=== PATIENT | male | born 1960 | race Caucasian/White ===

== ENCOUNTER 2016-07-22 09:21 | Outpatient (CLI) | payer MEDICAID | END 2016-07-22 09:22 | disposition home or self-care (01) | DX: M25.561 Pain in right knee (principal); G89.29 Other chronic pain; M17.11 Unilateral primary osteoarthritis, right knee; F17.201 Nicotine dependence, unspecified, in remission ==

== ENCOUNTER 2016-08-08 10:23 | Outpatient (CLI) | payer MEDICAID | END 2016-08-08 10:24 | disposition home or self-care (01) | DX: G47.33 Obstructive sleep apnea (adult) (pediatric) (principal) ==

== ENCOUNTER 2016-10-13 19:01 | Emergency (ER) | payer MEDICAID ==
[2016-10-13] MEDS ORDERED: HYDROmorphone 1 MG/ML SYRINGE IM STA (20:33)
[2016-10-13] MEDS ORDERED: HYDROmorphone 1 MG/ML SYRINGE ONE (20:38)
[2016-10-13] MEDS ORDERED: POTASSIUM CHLORIDE 20 MEQ TABLET PO STA (21:21)
[2016-10-13] MEDS ORDERED: POTASSIUM CHLORIDE 20 MEQ TABLET PO ONE (21:25)
== END 2016-10-13 22:24 | disposition home or self-care (01) ==
DX: M25.561 Pain in right knee (principal); M79.604 Pain in right leg; Z96.651 Presence of right artificial knee joint; I11.0 Hypertensive heart disease with heart failure; I50.9 Heart failure, unspecified; I25.10 Atherosclerotic heart disease of native coronary artery without angina pectoris; E11.42 Type 2 diabetes mellitus with diabetic polyneuropathy; Z79.4 Long term (current) use of insulin; K21.9 Gastro-esophageal reflux disease without esophagitis; E78.00 Pure hypercholesterolemia, unspecified; J44.9 Chronic obstructive pulmonary disease, unspecified; G47.30 Sleep apnea, unspecified; Z86.010 Personal history of colon polyps; Z87.11 Personal history of peptic ulcer disease; M19.90 Unspecified osteoarthritis, unspecified site; Z79.82 Long term (current) use of aspirin; Z87.891 Personal history of nicotine dependence
CPT/HCPCS: 36415; 80048; 85025; 85651; 86140; 93971; 96372; 99283; 99285; A9270; J1170

== ENCOUNTER 2017-01-20 07:37 | Outpatient (CLI) | payer MEDICAID ==
[2017-01-20 11:39] LABS: ALBUMIN/GLOBULIN RATIO 1.2 (1.0-2.2); BILIRUBIN,TOTAL 0.3 mg/dL (0.2-1.0); BUN - BLOOD UREA NITROGEN 14 mg/dL (6-20); CALCIUM 8.5 mg/dL (8.5-10.3); CARBON DIOXIDE - CO2 29 mmol/L (21-32); CHLORIDE 101 mmol/L (101-111); CHOL/HDL RATIO 4.4 (<5.0); CHOLESTEROL 124 mg/dL; CREATININE 0.9 mg/dL (0.6-1.2); GFR - MDRD 88 (>89); GLUCOSE 153 mg/dL (70-100); HDL CHOLESTEROL 28 mg/dL; LDL/HDL RATIO 2.4 (<3.6); POTASSIUM 3.9 mmol/L (3.5-5.0); SODIUM 138 mmol/L (135-145); TOTAL PROTEIN 6.5 g/dL (6.7-8.2); TRIGLYCERIDES 142 mg/dL; VLDL CHOLESTEROL 28 mg/dL
[2017-01-20 11:48] LABS: HEMOGLOBIN A1C 0.85 g/dL
== END 2017-01-20 07:38 | disposition home or self-care (01) ==
LOC: LAB.F 07:37
PROVIDERS: ATTEND Nurse Practitioner Family
DX: E11.9 Type 2 diabetes mellitus without complications (principal)
CPT/HCPCS: 36415; 80053; 80061; 82043; 83036

== ENCOUNTER 2017-08-18 08:54 | Outpatient (CLI) | payer MEDICAID ==
[2017-08-18 18:40] LABS: ALBUMIN 3.8 g/dL (3.2-5.5); CALCIUM 8.9 mg/dL (8.5-10.3); CREATININE 0.7 mg/dL (0.6-1.2); PHOSPHORUS 4.2 mg/dL (2.5-4.6)
[2017-08-18 20:05] LABS: HB2 TOTAL 15.6 g/dL; HEMOGLOBIN A1C 1.12 g/dL; HEMOGLOBIN A1C % 8.7 % (4.6-6.2)
== END 2017-08-18 08:55 | disposition home or self-care (01) ==
LOC: LAB.F 08:54
PROVIDERS: ATTEND Internal Medicine Cardiovascular Disease
DX: I25.119 Atherosclerotic heart disease of native coronary artery with unspecified angina pectoris (principal); E11.9 Type 2 diabetes mellitus without complications
CPT/HCPCS: 36415; 80069; 83036

== ENCOUNTER 2017-08-22 14:31 | Outpatient (CLI) | payer MEDICAID | END 2017-08-22 14:32 | disposition home or self-care (01) | LOC: SC 14:31 | PROVIDERS: ATTEND Nurse Practitioner Family | DX: G47.33 Obstructive sleep apnea (adult) (pediatric) (principal) | CPT/HCPCS: 99212; 99213 ==

== ENCOUNTER 2017-12-04 11:18 | Outpatient (CLI) | payer MEDICAID ==
[2017-12-04 19:49] LABS: HB2 TOTAL 15.2 g/dL; HEMOGLOBIN A1C 0.87 g/dL; HEMOGLOBIN A1C % 7.4 % (4.6-6.2)
== END 2017-12-04 11:19 | disposition home or self-care (01) ==
LOC: LAB.S 11:18
PROVIDERS: ATTEND Nurse Practitioner Family
DX: E11.9 Type 2 diabetes mellitus without complications (principal)
CPT/HCPCS: 36415; 83036

== ENCOUNTER 2018-01-19 16:06 | Emergency (ER) | payer MEDICAID ==
--- NOTE | 2018-01-19 16:30 | ED Physician Documentation ---
PD HPI LOWER EXT INJURY - Stated complaint Stated Complaint: L LEG PX - Chief complaint Chief Complaint: Ext Problem - History obtained from History obtained from: Patient - History of Present Illness PD HPI LOW EXT INJURY LOCATION: Left, Knee Type of injury: Other (overuse) Where injury occurred: Home Timing - onset: How many weeks ago (2) Timing - duration: Weeks (2) Timing - details: Gradual onset, Still present, Waxing and waning Improved by: Rest, Immobilization Worsened by: Moving, Palpating Associated symptoms: Swelling. No: Weakness, Numbness, Tingling Contributing factors: No: Anticoagulated Similar symptoms before: Diagnosis (right knee was replaced) Recently seen: Clinic - Additional information Additional information: 57 year old male diabetic with a prior right knee total replacement has developed pain in his left knee after excessive use with moving. He now has pain in the back of the knee radiating to the buttocks and pain from the calf to the popletial fossa. He has pain with weight bearing and with bending. He denies fever. He has been in to see his PMD and physical therapy has been prescribed and will not start until January. He is in too much pain to wait. Review of Systems Constitutional: denies: Fever Eyes: denies: Decreased vision Ears: denies: Ear pain Nose: denies: Congestion Throat: denies: Sore throat Respiratory: denies: Cough GI: denies: Vomiting : denies: Dysuria Skin: denies: Rash Musculoskeletal: reports: Extremity pain, Joint pain, Joint swelling, Pain with weight bearing. denies: Neck pain, Extremity swelling Neurologic: denies: Generalized weakness, Focal weakness, Numbness PD PAST MEDICAL HISTORY - Past Medical History Cardiovascular: Congestive heart failure, High cholesterol, Coronary artery disease, Angina, Murmur, Other Respiratory: COPD, Shortness of breath, Sleep apnea, CPAP use Endocrine/Autoimmune: Type 2 diabetes GI: GERD, GI bleed, Ulcers, Colon polyps, Chronic diarrhea, Other : None HEENT: None Psych: None Musculoskeletal: Osteoarthritis, Chronic back pain Derm: None - Past Surgical History Past Surgical History: Yes General: Bowel surgery, Colonoscopy Ortho: Spine surgery Cardiovascular: Coronary stent, Valve replacement, Other - Present Medications Home Medications: Ambulatory Orders Medication Instructions Recorded Confirmed Albuterol [Ventolin Hfa] 2 puffs INH DAILY 06/29/13 10/13/16 Beclomethasone 80 Mcg [Qvar 80] 1 puffs INH DAILY 06/29/13 10/13/16 Fluticasone [Flonase] 2 sprays ANUP BID 06/29/13 10/13/16 Gabapentin [Neurontin] 600 mg PO HS 06/29/13 10/13/16 Lisinopril [Zestril] 5 mg PO DAILY 06/29/13 10/13/16 Metformin HCl [Fortamet] 1,000 mg PO BID 06/29/13 10/13/16 Omeprazole [PriLOSEC] 20 mg PO DAILY 06/29/13 10/13/16 glipiZIDE [Glucotrol] 10 - 15 mg PO BID 06/29/13 10/13/16 Cholecalciferol (Vitamin D3) 10,000 unit PO DAILY 09/02/13 10/13/16 [Vitamin D-3] traMADol [Ultram] 50 mg PO DAILY 12/19/13 10/13/16 Albuterol 2.5 mg INH Q4H PRN #30 neb 11/25/14 10/13/16 Furosemide [Lasix] 40 mg PO DAILY #20 tablet 11/25/14 10/13/16 hydrOXYzine pamoate [Hydroxyzine 100 mg PO QPM 11/25/14 10/13/16 Pamoate] Atorvastatin [Lipitor] 80 mg ORAL DAILY 02/05/16 10/13/16 Metoprolol Succinate 25 mg PO BID 02/05/16 10/13/16 Nitroglycerin 0.4 mg SL PRN PRN 02/05/16 10/13/16 Clopidogrel Bisulfate [Clopidogrel] 75 mg PO DAILY 06/29/16 10/13/16 Cyclobenzaprine HCl 10 mg PO DAILY 06/29/16 10/13/16 Dicyclomine [Bentyl] 20 mg PO QID 06/29/16 10/13/16 Insulin Glargine,Hum.rec.anlog 82 unit SQ DAILY 06/29/16 10/13/16 [Lantus] Insulin Lispro [Humalog] 4 - 8 unit SQ TIDWM 08/24/16 10/13/16 Isosorbide Dinitrate 5 mg PO TID 08/24/16 10/13/16 Acetaminophen 500 mg PO Q6H 10/13/16 10/13/16 Aspirin 81 mg PO DAILY 10/13/16 10/13/16 Clopidogrel [Plavix] 25 mg PO ONCE 10/13/16 10/13/16 oxyCODONE/ACET 5/325 [Percocet 5 1 - 2 each PO Q4-6H PRN #20 tablet 01/19/18 mg/325 mg] - Allergies Allergies/Adverse Reactions: Allergies Allergy/AdvReac Type Severity Reaction Status Date / Time No Known Drug Allergies Allergy Verified 01/19/18 16:13 - Social History Does the pt smoke?: No Smoking Status: Former smoker Does the pt drink ETOH?: No Does the pt have substance abuse?: No - Immunizations Immunizations are current?: Yes - POLST Patient has POLST: No PD ED PE NORMAL - Vitals Vital signs reviewed: Yes (hypertensive) - General General: Alert and oriented X 3, No acute distress, Well developed/nourished - HEENT HEENT: Atraumatic, PERRL - Respiratory Respiratory: No respiratory distress - Derm Derm: Normal color, Warm and dry, No rash - Extremities Extremities: No deformity, No edema, Other (There is a palpable cord over the posterior calf and this extends into the popliteal fossa and up into the posterior thigh. The area is tender. It does appear there is a bakers cyst and a joint effusion consistent with over use. Distal n/v is intact. ) - Neuro Neuro: No motor deficit, No sensory deficit Eye Opening: Spontaneous Motor: Obeys Commands Verbal: Oriented GCS Score: 15 - Psych Psych: Normal mood, Normal affect Results - Vitals Vitals: Oxygen O2 Source Room air - Rads (name of study) L knee Radiology: Prelim report reviewed (Impression: 1. No acute bony abnormality. 2. Mild degenerative changes, grade 2 by Kellgran Bogdan classification. 3. Small effusion.), EMP read indepedently, See rad report duplex viens left Radiology: Prelim report reviewed (Impression: No evidence for deep venous thrombosis.), EMP read indepedently, See rad report PD MEDICAL DECISION MAKING - ED course Complexity details: reviewed old records, reviewed results, re-evaluated patient , considered differential, d/w patient ED course: 57 y/o diabetic male with history of arthritis and prior knee replacement has developed acute reactive arthritis in the left knee after excessive use moving. He is administered PO decadron and x-ray and duplex exam are performed. He does have symptoms up the back of his calf that are significant enough to trigger duplex exam. I suspect his symptoms are all related to overuse and not DVT. - Sepsis Event Vital Signs: Oxygen O2 Source Room air Departure - Departure Disposition: 01 Home, Self Care Clinical Impression: Reactive arthritis of knee Condition: Stable Instructions: ED Effusion Knee Follow-Up: Tennille Barahona ARNP [Primary Care Provider] - [facility] [Provider Group] Prescriptions: oxyCODONE/ACET 5/325 [Percocet 5 mg/325 mg] 1 - 2 each PO Q4-6H PRN #20 tablet PRN Reason: knee pain Discharge Date/Time: 01/19/18 19:10
[2018-01-19] MEDS: DEXAMETHASONE 10 MG/ML VIAL PO STA (16:47)
[2018-01-19] MEDS ORDERED: CHERRY SYRUP 10 ML UDC PO ONE (16:58)
--- NOTE | 2018-01-19 17:34 | XRAY Report ---
Procedure Date: 01/19/2018 Accession Number: [id number] / [id number] Procedure: XR - Knee 4 View LT CPT Code: FULL RESULT: EXAM: LEFT KNEE RADIOGRAPHY EXAM DATE: 01/19/2018 05:11 PM. CLINICAL HISTORY: Pain, predominantly posterior, after overuse. COMPARISON: None. TECHNIQUE: 4 views. FINDINGS: Bones: Normal. No fractures or bone lesions. Joints: Mild narrowing and moderate osteophytes all 3 joint compartments. Small effusion. Moderate osteophytes off the tibial spines. Soft Tissues: Normal. No soft tissue swelling. IMPRESSION: 1. No acute bony abnormality. 2. Mild degenerative changes, grade 2 by Kellgren Bogdan classification. 3. Small effusion. RADIA
[2018-01-19 19:11] VITALS: BP 123/75
--- NOTE | 2018-01-19 19:19 | Ultrasound Report ---
Procedure Date: 01/19/2018 Accession Number: [id number] / [id number] Procedure: US - Duplex Ext Veins Left CPT Code: FULL RESULT: EXAM: LEFT LOWER EXTREMITY VENOUS ULTRASOUND EXAM DATE: 01/19/2018 06:31 PM. CLINICAL HISTORY: Posterior swelling pain cord palpable. COMPARISON: None. TECHNIQUE: Real-time sonographic vascular imaging was performed by the inspector structural bonding through the lower extremity utilizing both color-flow and Doppler spectral analysis. Multiple merchandiser retail representative static images were saved for review. FINDINGS: Common Femoral Vein (CFV): Normal. CFV-GSV Junction: Normal. Profunda Femoral Vein (PFV): Normal. Femoral Vein (FV) Prox: Normal. Femoral Vein (FV) Mid: Normal. Femoral Vein (FV) Dist: Normal. Popliteal Vein: Normal. Posterior Tibial Veins: Normal. Peroneal Veins: Normal. Other: None. IMPRESSION: No evidence for deep venous thrombosis. RADIA
== END 2018-01-19 19:10 | disposition home or self-care (01) ==
LOC: ED 16:06
DX: M17.12 Unilateral primary osteoarthritis, left knee (principal); E11.9 Type 2 diabetes mellitus without complications; E78.00 Pure hypercholesterolemia, unspecified; I25.10 Atherosclerotic heart disease of native coronary artery without angina pectoris; Z95.5 Presence of coronary angioplasty implant and graft; Z79.4 Long term (current) use of insulin; Z96.651 Presence of right artificial knee joint; Z79.82 Long term (current) use of aspirin
CPT/HCPCS: 73564; 93971; 99283; A9270

== ENCOUNTER 2018-03-08 07:11 | Outpatient (CLI) | payer MEDICAID ==
[2018-03-08 11:17] LABS: BASOPHILS % (AUTO) 0.6 %; EOSINOPHILS # (AUTO) 0.2 10^3/uL (0.0-0.7); EOSINOPHILS % (AUTO) 2.8 %; HGB - HEMOGLOBIN 14.4 g/dL (14.0-18.0); LYMPHOCYTES # (AUTO) 1.8 10^3/uL (1.5-3.5); LYMPHOCYTES % (AUTO) 22.5 %; MEAN CORPUSCULAR HEMOGLOBIN 29.4 pg (27.0-31.0); MEAN CORPUSCULAR HGB CONC 33.7 g/dL (32.0-36.0); MEAN CORPUSCULAR VOLUME 87.3 fL (80.0-94.0); MEAN PLATELET VOLUME 8.8 fL (7.4-11.4); MONOCYTES # (AUTO) 0.7 10^3/uL (0.0-1.0); MONOCYTES % (AUTO) 9.2 %; NEUTROPHILS # (AUTO) 5.1 10^3/uL (1.5-6.6); NEUTROPHILS % (AUTO) 64.9 %; PLT - PLATELET COUNT 183 10^3/uL (130-450); RED BLOOD COUNT 4.89 10^6/uL (4.70-6.10); RED CELL DISTRIBUTION WIDTH 16.6 % (12.0-15.0); WHITE BLOOD COUNT 7.9 x10^3/uL (4.8-10.8)
[2018-03-08 11:22] LABS: ALBUMIN/GLOBULIN RATIO 1.4 (1.0-2.2); ALKALINE PHOSPHATASE 61 IU/L (42-121); ALT ALANINE AMINOTRANSFERASE 25 IU/L (10-60); AST ASPARTATE AMINOTRANSFERASE 20 IU/L (10-42); BILIRUBIN,TOTAL 0.5 mg/dL (0.2-1.0); BUN - BLOOD UREA NITROGEN 12 mg/dL (6-20); CALCIUM 9.1 mg/dL (8.5-10.3); CARBON DIOXIDE - CO2 31 mmol/L (21-32); CHLORIDE 100 mmol/L (101-111); CHOL/HDL RATIO 3.1 (<5.0); CHOLESTEROL 100 mg/dL; CREATININE 0.8 mg/dL (0.6-1.2); GFR - MDRD 100 (>89); GLUCOSE 127 mg/dL (70-100); HDL CHOLESTEROL 32 mg/dL; LDL CHOLESTEROL,CALCULATED 56 mg/dL; LDL/HDL RATIO 1.8 (<3.6); SODIUM 140 mmol/L (135-145); TOTAL PROTEIN 6.8 g/dL (6.7-8.2); VLDL CHOLESTEROL 12 mg/dL
[2018-03-08 11:44] LABS: HB2 TOTAL 15.6 g/dL; HEMOGLOBIN A1C 0.66 g/dL
== END 2018-03-08 07:12 | disposition home or self-care (01) ==
LOC: LAB.F 07:11
PROVIDERS: ATTEND Nurse Practitioner Family
DX: E11.9 Type 2 diabetes mellitus without complications (principal); E78.5 Hyperlipidemia, unspecified; I50.9 Heart failure, unspecified; J44.9 Chronic obstructive pulmonary disease, unspecified
CPT/HCPCS: 36415; 80053; 80061; 82043; 83036; 83721; 84443; 85025

== ENCOUNTER 2018-06-05 09:19 | Outpatient (CLI) | payer MEDICAID ==
[2018-06-05 18:21] LABS: HB2 TOTAL 15.3 g/dL; HEMOGLOBIN A1C 0.68 g/dL; HEMOGLOBIN A1C % 6.2 % (4.6-6.2)
== END 2018-06-05 09:20 | disposition home or self-care (01) ==
LOC: LAB.F 09:19
PROVIDERS: ATTEND Nurse Practitioner Family
DX: E11.9 Type 2 diabetes mellitus without complications (principal)
CPT/HCPCS: 36415; 83036

== ENCOUNTER 2018-08-16 12:02 | Outpatient (CLI) | payer MEDICAID ==
--- NOTE | 2018-08-16 17:19 | MRI Report ---
Reason: CHRONIC BILATERAL LOW BACK PAIN WITH BILATERAL SCI Procedure Date: 08/16/2018 Accession Number: [id number] / [id number] Procedure: MRI - Lumbar Spine W/O CPT Code: FULL RESULT: MRI LUMBAR SPINE WITHOUT CONTRAST INDICATION: 58-year-old male. Chronic bilateral low back pain with bilateral leg pain. Please assess. TECHNIQUE: 1. Sagittal STIR, T1 and T2. 2. Axial T1 and T2. COMPARISON: None. FINDINGS: Bone window images from a previous abdomen/pelvis CT (04/30/2016) have been reviewed, confirming the presence of 5 non-rib bearing lumbar type vertebrae. Vertebral alignment is essentially normal. There is absence of normal T2 signal from the disks at all levels from T12-L1 to L5-S1, confirming disk degeneration. There is mild disk space narrowing at L2-L3 with moderate narrowing at L4-L5 and mild to moderate narrowing at L5-S1. The disk space heights are otherwise preserved. The marrow signal intensity is unremarkable. The conus terminates in appropriate fashion above the L1-L2 disk level. There is no abnormal thickening or lipomatous change of the filum. Axial Images: T12-L1: No disk herniation. No spinal canal or foraminal stenosis. L1-L2: Small intraforaminal/extraforaminal protrusions bilaterally. No spinal canal or foraminal stenosis. L2-L3: Circumferential disk bulge. Broad-based intraforaminal/extraforaminal extrusions bilaterally. Mild to moderate redundancy of the ligamenta flava. Mild prominence of the intralaminar fat pad. Circumferential thecal sac compression with mild to moderate spinal stenosis. Mild right foraminal stenosis. L3-L4: Broad-based, intraforaminal/extraforaminal extrusions, larger on the right than the left. Degenerative facet arthrosis without significant bony hypertrophy. Mild to moderate redundancy of the ligamenta flava. Mild prominence of intralaminar fat pad. Moderate generalized (central and subarticular zone). Spinal stenosis. Mild foraminal stenoses. L4-L5: There is deformity of the right lamina suggesting probable previous hemilaminotomy. There is a circumferential disk bulge with associated, minor posterior osteophyte. A small extrusion with minor, caudal migration is identified, paracentrally on the right. There is associated, right subarticular zone stenosis. Traversing right L5 nerve root is contacted by disk anteriorly and facet/ligamentum flavum posteriorly in the subarticular zone. There could be impingement of the right L5 nerve root. No central zone spinal stenosis or significant left subarticular zone narrowing. Small intraforaminal/extraforaminal protrusion bilaterally. Degenerative facet arthrosis with at least mild bony hypertrophy. Mild foraminal narrowing. L5-S1: There is a moderate-sized, broad-based, posterior extrusion that is largest, paracentrally to the left where it projects posteriorly into the spinal canal for about 9.8 mm. The extrusion contacts the dural sleeve for traversing right S1 nerve root in the right subarticular zone. No mass effect on the S1 nerve root is demonstrated. The extrusion contacts the traversing left S1 nerve root in the left subarticular zone and causes minimal if any mass effect on the nerve root. The extrusion is not causing apparent mass effect on the dural sac; however, noted is abundant epidural fat in the spinal canal, surrounding and compressing the dural sac, consistent with epidural lipomatosis. There is little if any CSF in the dural sac at the disk level. Broad-based intraforaminal/extraforaminal extrusions are demonstrated bilaterally without significant associated foraminal stenosis. There is a moderate degree of fatty atrophy in the posterior paraspinal musculature of lower lumbar/upper sacral region. IMPRESSION: 1. Disk and facet changes are seen throughout the lumbar spine as documented in detail above. 2. There are associated, central, subarticular and foraminal zone stenoses. The most significant stenoses are as follows: A. At L4-L5 there is significant appearing right subarticular zone stenosis. There could be compromise of traversing right L5 nerve root. Recommend clinical correlation for possible right L5 radiculopathy. B. A moderate-sized, posterior extrusion at L5-S1 contacts the traversing left S1 nerve root in the left subarticular zone. There appears to be very minimal mass effect on the left S1 nerve area. Recommend clinical correlation for possible left S1 radiculitis/radiculopathy. No other significant stenosis is identified and no other potential neural irritation or impingement is demonstrated.
== END 2018-08-16 12:03 | disposition home or self-care (01) ==
LOC: DI 12:02
PROVIDERS: ATTEND Physical Medicine & Rehabilitation
DX: M51.26 Other intervertebral disc displacement, lumbar region (principal); M51.27 Other intervertebral disc displacement, lumbosacral region; M47.9 Spondylosis, unspecified; M51.36 Other intervertebral disc degeneration, lumbar region; M48.061 Spinal stenosis, lumbar region without neurogenic claudication; M51.37 Other intervertebral disc degeneration, lumbosacral region
CPT/HCPCS: 72148

== ENCOUNTER 2018-08-28 14:43 | Outpatient (CLI) | payer MEDICAID | END 2018-08-28 14:44 | disposition home or self-care (01) | LOC: SC 14:43 | PROVIDERS: ATTEND Nurse Practitioner Family | DX: G47.33 Obstructive sleep apnea (adult) (pediatric) (principal) | CPT/HCPCS: 99212; 99214 ==

== ENCOUNTER 2018-09-13 07:13 | Outpatient (CLI) | payer MEDICAID ==
[2018-09-13 12:59] LABS: BASOPHILS # (AUTO) 0.1 10^3/uL (0.0-0.1); BASOPHILS % (AUTO) 0.8 %; EOSINOPHILS # (AUTO) 0.4 10^3/uL (0.0-0.7); EOSINOPHILS % (AUTO) 4.3 %; HGB - HEMOGLOBIN 14.1 g/dL (14.0-18.0); LYMPHOCYTES # (AUTO) 1.9 10^3/uL (1.5-3.5); LYMPHOCYTES % (AUTO) 20.1 %; MEAN CORPUSCULAR HEMOGLOBIN 30.6 pg (27.0-31.0); MEAN CORPUSCULAR HGB CONC 34.1 g/dL (32.0-36.0); MEAN CORPUSCULAR VOLUME 89.9 fL (80.0-94.0); MEAN PLATELET VOLUME 8.7 fL (7.4-11.4); MONOCYTES # (AUTO) 0.8 10^3/uL (0.0-1.0); MONOCYTES % (AUTO) 8.2 %; NEUTROPHILS # (AUTO) 6.4 10^3/uL (1.5-6.6); NEUTROPHILS % (AUTO) 66.6 %; PLT - PLATELET COUNT 163 10^3/uL (130-450); RED BLOOD COUNT 4.62 10^6/uL (4.70-6.10); RED CELL DISTRIBUTION WIDTH 15.4 % (12.0-15.0); WHITE BLOOD COUNT 9.6 x10^3/uL (4.8-10.8)
[2018-09-13 13:12] LABS: ALBUMIN 3.9 g/dL (3.2-5.5); ALBUMIN/GLOBULIN RATIO 1.4 (1.0-2.2); ALKALINE PHOSPHATASE 64 IU/L (42-121); ALT ALANINE AMINOTRANSFERASE 26 IU/L (10-60); AST ASPARTATE AMINOTRANSFERASE 18 IU/L (10-42); BILIRUBIN,TOTAL 0.6 mg/dL (0.2-1.0); BUN - BLOOD UREA NITROGEN 14 mg/dL (6-20); CALCIUM 8.3 mg/dL (8.5-10.3); CARBON DIOXIDE - CO2 30 mmol/L (21-32); CHLORIDE 96 mmol/L (101-111); CHOLESTEROL 127 mg/dL; CREATININE 0.6 mg/dL (0.6-1.2); GFR - MDRD 139 (>89); GLUCOSE 116 mg/dL (70-100); HDL CHOLESTEROL 43 mg/dL; LDL CHOLESTEROL,CALCULATED 69 mg/dL; LDL/HDL RATIO 1.6 (<3.6); SODIUM 136 mmol/L (135-145); TOTAL PROTEIN 6.6 g/dL (6.7-8.2); VLDL CHOLESTEROL 15 mg/dL
[2018-09-13 14:14] LABS: HB2 TOTAL 15.3 g/dL; HEMOGLOBIN A1C 0.73 g/dL; HEMOGLOBIN A1C % 6.5 % (4.6-6.2)
== END 2018-09-13 07:14 | disposition home or self-care (01) ==
LOC: LAB.F 07:13
PROVIDERS: ATTEND Nurse Practitioner
DX: E78.5 Hyperlipidemia, unspecified (principal); E11.9 Type 2 diabetes mellitus without complications
CPT/HCPCS: 36415; 80053; 80061; 82043; 83036; 83721; 85025

== ENCOUNTER 2018-12-18 07:21 | Outpatient (CLI) | payer MEDICAID ==
[2018-12-18 10:46] LABS: BASOPHILS # (AUTO) 0.1 10^3/uL (0.0-0.1); EOSINOPHILS # (AUTO) 0.3 10^3/uL (0.0-0.7); HGB - HEMOGLOBIN 14.1 g/dL (14.0-18.0); LYMPHOCYTES # (AUTO) 2.3 10^3/uL (1.5-3.5); LYMPHOCYTES % (AUTO) 25.9 %; MEAN CORPUSCULAR HEMOGLOBIN 29.3 pg (27.0-31.0); MEAN CORPUSCULAR HGB CONC 31.5 g/dL (32.0-36.0); MEAN CORPUSCULAR VOLUME 93.1 fL (80.0-94.0); MEAN PLATELET VOLUME 10.5 fL (7.4-11.4); MONOCYTES # (AUTO) 0.8 10^3/uL (0.0-1.0); MONOCYTES % (AUTO) 9.3 %; NEUTROPHILS # (AUTO) 5.3 10^3/uL (1.5-6.6); NEUTROPHILS % (AUTO) 60.3 %; PLT - PLATELET COUNT 166 10^3/uL (130-450); RED BLOOD COUNT 4.81 10^6/uL (4.70-6.10); RED CELL DISTRIBUTION WIDTH 14.6 % (12.0-15.0); WHITE BLOOD COUNT 8.7 x10^3/uL (4.8-10.8)
[2018-12-18 11:04] LABS: ALBUMIN 3.7 g/dL (3.2-5.5); ALBUMIN/GLOBULIN RATIO 1.2 (1.0-2.2); ALKALINE PHOSPHATASE 60 IU/L (42-121); ALT ALANINE AMINOTRANSFERASE 31 IU/L (10-60); AST ASPARTATE AMINOTRANSFERASE 20 IU/L (10-42); BILIRUBIN,TOTAL 0.6 mg/dL (0.2-1.0); BUN - BLOOD UREA NITROGEN 14 mg/dL (6-20); CALCIUM 8.8 mg/dL (8.5-10.3); CARBON DIOXIDE - CO2 26 mmol/L (21-32); CHLORIDE 104 mmol/L (101-111); CHOL/HDL RATIO 3.9 (<5.0); CHOLESTEROL 125 mg/dL; CREATININE 0.6 mg/dL (0.6-1.2); GFR - MDRD 139 (>89); GLUCOSE 136 mg/dL (70-100); HDL CHOLESTEROL 32 mg/dL; LDL CHOLESTEROL,CALCULATED 64 mg/dL; SODIUM 140 mmol/L (135-145); TOTAL PROTEIN 6.7 g/dL (6.7-8.2); VLDL CHOLESTEROL 29 mg/dL
[2018-12-18 11:16] LABS: HB2 TOTAL 14.5 g/dL; HEMOGLOBIN A1C 0.79 g/dL; HEMOGLOBIN A1C % 7.1 % (4.6-6.2)
== END 2018-12-18 07:22 | disposition home or self-care (01) ==
LOC: LAB.F 07:21
PROVIDERS: ATTEND Registered Nurse
DX: E11.9 Type 2 diabetes mellitus without complications (principal); E66.9 Obesity, unspecified; E78.5 Hyperlipidemia, unspecified; I25.10 Atherosclerotic heart disease of native coronary artery without angina pectoris
CPT/HCPCS: 36415; 80053; 80061; 83036; 83721; 84443; 85025

== ENCOUNTER 2018-12-31 08:47 | Outpatient (CLI) | payer MEDICAID ==
[2018-12-31 09:41] LABS: ALBUMIN 3.8 g/dL (3.2-5.5); BILIRUBIN,DIRECT 0.1 mg/dL (0.1-0.5); BILIRUBIN,TOTAL 0.5 mg/dL (0.2-1.0); CREATININE 0.7 mg/dL (0.6-1.2); TOTAL PROTEIN 6.8 g/dL (6.7-8.2)
== END 2018-12-31 08:48 | disposition home or self-care (01) ==
LOC: LAB 08:47
PROVIDERS: ATTEND Physician Assistant Medical
DX: B35.1 Tinea unguium (principal); Z79.899 Other long term (current) drug therapy
CPT/HCPCS: 36415; 80076; 82565; 84520

== ENCOUNTER 2019-02-05 17:47 | Emergency (ER) | payer MEDICAID ==
[2019-02-05] MEDS ORDERED: BACITRACIN OINT TOP STA (19:00)
--- NOTE | 2019-02-05 19:01 | ED Physician Documentation ---
History of Present Illness - Stated complaint Stated Complaint: L HAND BURN - Chief complaint Chief Complaint: Burn - History obtained from History obtained from: Patient - History of Present Illness Timing: Today, How many hours ago (1) Pain level max: 5 Pain level now: 4 PD PAST MEDICAL HISTORY - Past Medical History Cardiovascular: Congestive heart failure, High cholesterol, Coronary artery disease, Angina, Murmur, Other Respiratory: COPD, Shortness of breath, Sleep apnea, CPAP use Endocrine/Autoimmune: Type 2 diabetes GI: GERD, GI bleed, Ulcers, Colon polyps, Chronic diarrhea, Other : None HEENT: None Psych: None Musculoskeletal: Osteoarthritis, Chronic back pain Derm: None - Past Surgical History Past Surgical History: Yes General: Bowel surgery, Colonoscopy Ortho: Spine surgery Cardiovascular: Coronary stent, Valve replacement, Other - Present Medications Home Medications: Ambulatory Orders Medication Instructions Recorded Confirmed Albuterol [Ventolin Hfa] 2 puffs INH DAILY 06/29/13 10/13/16 Beclomethasone 80 Mcg [Qvar 80] 1 puffs INH DAILY 06/29/13 10/13/16 Fluticasone [Flonase] 2 sprays ANUP BID 06/29/13 10/13/16 Gabapentin [Neurontin] 600 mg PO HS 06/29/13 10/13/16 Lisinopril [Zestril] 5 mg PO DAILY 06/29/13 10/13/16 Metformin HCl [Fortamet] 1,000 mg PO BID 06/29/13 10/13/16 Omeprazole [PriLOSEC] 20 mg PO DAILY 06/29/13 10/13/16 glipiZIDE [Glucotrol] 10 - 15 mg PO BID 06/29/13 10/13/16 Cholecalciferol (Vitamin D3) 10,000 unit PO DAILY 09/02/13 10/13/16 [Vitamin D-3] traMADol [Ultram] 50 mg PO DAILY 12/19/13 10/13/16 Albuterol 2.5 mg INH Q4H PRN #30 neb 11/25/14 10/13/16 Furosemide [Lasix] 40 mg PO DAILY #20 tablet 11/25/14 10/13/16 hydrOXYzine pamoate [Hydroxyzine 100 mg PO QPM 11/25/14 10/13/16 Pamoate] Atorvastatin [Lipitor] 80 mg ORAL DAILY 02/05/16 10/13/16 Metoprolol Succinate 25 mg PO BID 02/05/16 10/13/16 Nitroglycerin 0.4 mg SL PRN PRN 02/05/16 10/13/16 Clopidogrel Bisulfate [Clopidogrel] 75 mg PO DAILY 06/29/16 10/13/16 Cyclobenzaprine HCl 10 mg PO DAILY 06/29/16 10/13/16 Dicyclomine [Bentyl] 20 mg PO QID 06/29/16 10/13/16 Insulin Glargine,Hum.rec.anlog 82 unit SQ DAILY 06/29/16 10/13/16 [Lantus] Insulin Lispro [Humalog] 4 - 8 unit SQ TIDWM 08/24/16 10/13/16 Isosorbide Dinitrate 5 mg PO TID 08/24/16 10/13/16 Acetaminophen 500 mg PO Q6H 10/13/16 10/13/16 Aspirin 81 mg PO DAILY 10/13/16 10/13/16 Clopidogrel [Plavix] 25 mg PO ONCE 10/13/16 10/13/16 oxyCODONE/ACET 5/325 [Percocet 5 1 - 2 each PO Q4-6H PRN #20 tablet 01/19/18 mg/325 mg] - Allergies Allergies/Adverse Reactions: Allergies Allergy/AdvReac Type Severity Reaction Status Date / Time No Known Drug Allergies Allergy Verified 02/05/19 17:53 - Social History Does the pt smoke?: No Smoking Status: Never smoker Does the pt drink ETOH?: No Does the pt have substance abuse?: No Substance Use and Type: Marijuana - Immunizations Immunizations are current?: Yes - POLST Patient has POLST: No Results - Vitals Vitals: Vital Signs - 24 hr 02/05/19 17:51 Temperature 36.2 C L Heart Rate 80 Respiratory 17 Rate Blood Pressure 131/66 H O2 Saturation 95 Oxygen O2 Source Room air Departure - Departure Disposition: 01 Home, Self Care Clinical Impression: Burn of hand Qualifiers: Encounter type: initial encounter Burn of hand location: unspecified site Laterality: left Burn degree: partial thickness (2nd degree) Qualified Code(s): T23.202A - Burn of second degree of left hand, unspecified site, initial encounter Condition: Good Instructions: ED Burn D 2nd Follow-Up: Latonya Wright ARNP [Primary Care Provider] - Within 1 week (for wound check) Comments: You can apply antibiotic ointment to the wounds. Return if you worsen. You can use Motrin or Tylenol as needed for pain. Return if you notice redness, swelling or drainage from the wounds.
[2019-02-05 19:29] VITALS: BP 143/63
== END 2019-02-05 19:29 | disposition home or self-care (01) ==
LOC: ED 17:47
DX: T23.242A Burn of second degree of multiple left fingers (nail), including thumb, initial encounter (principal); X15.0XXA Contact with hot stove (kitchen), initial encounter; Y93.89 Activity, other specified; E11.9 Type 2 diabetes mellitus without complications; Z79.4 Long term (current) use of insulin
CPT/HCPCS: 99282; 99283

== ENCOUNTER 2019-02-11 11:11 | Outpatient (CLI) | payer MEDICAID ==
[2019-02-11 11:51] LABS: ALBUMIN 3.6 g/dL (3.2-5.5); ALKALINE PHOSPHATASE 74 IU/L (42-121); ALT ALANINE AMINOTRANSFERASE 33 IU/L (10-60); AST ASPARTATE AMINOTRANSFERASE 21 IU/L (10-42); BILIRUBIN,DIRECT < 0.1 mg/dL (0.1-0.5); BILIRUBIN,TOTAL 0.5 mg/dL (0.2-1.0); TOTAL PROTEIN 6.4 g/dL (6.7-8.2)
== END 2019-02-11 11:12 | disposition home or self-care (01) ==
LOC: LAB 11:11
PROVIDERS: ATTEND Physician Assistant Medical
DX: B35.1 Tinea unguium (principal)
CPT/HCPCS: 36415; 80076

== ENCOUNTER 2019-03-20 07:29 | Outpatient (CLI) | payer MEDICAID ==
[2019-03-20 10:31] LABS: ALBUMIN 3.9 g/dL (3.2-5.5); ALKALINE PHOSPHATASE 71 IU/L (42-121); ALT ALANINE AMINOTRANSFERASE 27 IU/L (10-60); AST ASPARTATE AMINOTRANSFERASE 19 IU/L (10-42); BILIRUBIN,TOTAL 0.5 mg/dL (0.2-1.0); TOTAL PROTEIN 6.5 g/dL (6.7-8.2)
[2019-03-20 10:41] LABS: BILIRUBIN,DIRECT < 0.1 mg/dL (0.1-0.5)
== END 2019-03-20 07:30 | disposition home or self-care (01) ==
LOC: LAB.S 07:29
PROVIDERS: ATTEND Physician Assistant Medical
DX: B35.1 Tinea unguium (principal)
CPT/HCPCS: 36415; 80076

== ENCOUNTER 2019-04-05 10:03 | Outpatient (CLI) | payer MEDICAID ==
--- NOTE | 2019-04-05 10:58 | XRAY Report ---
Reason: PRODUCTIVE COUGH R05 Procedure Date: 04/05/2019 Accession Number: [id number] / [id number] Procedure: XRS - Chest 2 View X-Ray CPT Code: 26884 FULL RESULT: EXAM: CHEST RADIOGRAPHY EXAM DATE: 04/05/2019 10:15 AM. CLINICAL HISTORY: Productive cough. COMPARISON: CHEST 1 VIEW 02/05/2016 12:01 PM. TECHNIQUE: 2 views. FINDINGS: Lungs/Pleura: Stable linear bilateral basilar parenchymal scarring. Lungs otherwise clear. No pleural effusions. Mediastinum: Stable mild cardiac enlargement. No evidence of vascular congestion. Other: None. IMPRESSION: 1. No acute cardiopulmonary abnormality. 2. Stable linear bilateral basilar parenchymal scarring. RADIA
== END 2019-04-05 10:04 | disposition home or self-care (01) ==
LOC: DI.S 10:03
PROVIDERS: ATTEND Physician Assistant Medical
DX: R05 Cough (principal)
CPT/HCPCS: 71046

== ENCOUNTER 2019-04-09 08:00 | Outpatient (CLI) | payer MEDICAID | END 2019-04-09 23:59 | disposition home or self-care (01) | LOC: LAB.R 08:00 | PROVIDERS: ATTEND Physician Assistant Medical | DX: R05 Cough (principal) | CPT/HCPCS: 87070; 87205 ==

== ENCOUNTER 2019-04-12 08:00 | Outpatient (CLI) | payer MEDICAID | END 2019-04-12 23:59 | disposition home or self-care (01) | LOC: LAB.R 08:00 | PROVIDERS: ATTEND Physician Assistant Medical | DX: R05 Cough (principal) | CPT/HCPCS: 87070; 87205 ==

== ENCOUNTER 2019-04-17 12:16 | Emergency (ER) | payer MEDICAID ==
--- NOTE | 2019-04-17 14:52 | ED Physician Documentation ---
PD HPI DYSPNEA - Stated complaint Stated Complaint: SOA - Chief complaint Chief Complaint: Resp - History obtained from History obtained from: Patient - History of Present Illness Timing - onset: Other (59-year-old gentleman with COPD and CHF presents with 2 weeks of productive cough and congestion and shortness of breath without fevers. He was seen in the clinic and started on an antibiotic. No steroids, I presume because he is diabetic. Respiratory culture was done and grew some gram- positive cocci and yeast. Review of up-to-date suggest that yeast in a respiratory culture should not be treated.) Review of Systems Constitutional: denies: Fever, Chills Cardiac: denies: Chest pain / pressure, Palpitations, Pedal edema, Calf pain Respiratory: reports: Dyspnea, Cough PD PAST MEDICAL HISTORY - Past Medical History Cardiovascular: Congestive heart failure, High cholesterol, Coronary artery disease, Angina, Murmur, Other Respiratory: COPD, Shortness of breath, Sleep apnea, CPAP use Endocrine/Autoimmune: Type 2 diabetes GI: GERD, GI bleed, Ulcers, Colon polyps, Chronic diarrhea, Other : None HEENT: None Psych: None Musculoskeletal: Osteoarthritis, Chronic back pain Derm: None - Past Surgical History Past Surgical History: Yes General: Bowel surgery, Colonoscopy Ortho: Spine surgery Cardiovascular: Coronary stent, Valve replacement, Other - Present Medications Home Medications: Ambulatory Orders Medication Instructions Recorded Confirmed Albuterol [Ventolin Hfa] 2 puffs INH DAILY 06/29/13 10/13/16 Beclomethasone 80 Mcg [Qvar 80] 1 puffs INH DAILY 06/29/13 10/13/16 Fluticasone [Flonase] 2 sprays ANUP BID 06/29/13 10/13/16 Gabapentin [Neurontin] 600 mg PO HS 06/29/13 10/13/16 Lisinopril [Zestril] 5 mg PO DAILY 06/29/13 10/13/16 Metformin HCl [Fortamet] 1,000 mg PO BID 06/29/13 10/13/16 Omeprazole [PriLOSEC] 20 mg PO DAILY 06/29/13 10/13/16 glipiZIDE [Glucotrol] 10 - 15 mg PO BID 06/29/13 10/13/16 Cholecalciferol (Vitamin D3) 10,000 unit PO DAILY 09/02/13 10/13/16 [Vitamin D-3] traMADol [Ultram] 50 mg PO DAILY 12/19/13 10/13/16 Albuterol 2.5 mg INH Q4H PRN #30 neb 11/25/14 10/13/16 Furosemide [Lasix] 40 mg PO DAILY #20 tablet 11/25/14 10/13/16 hydrOXYzine pamoate [Hydroxyzine 100 mg PO QPM 11/25/14 10/13/16 Pamoate] Atorvastatin [Lipitor] 80 mg ORAL DAILY 02/05/16 10/13/16 Metoprolol Succinate 25 mg PO BID 02/05/16 10/13/16 Nitroglycerin 0.4 mg SL PRN PRN 02/05/16 10/13/16 Clopidogrel Bisulfate [Clopidogrel] 75 mg PO DAILY 06/29/16 10/13/16 Cyclobenzaprine HCl 10 mg PO DAILY 06/29/16 10/13/16 Dicyclomine [Bentyl] 20 mg PO QID 06/29/16 10/13/16 Insulin Glargine,Hum.rec.anlog 82 unit SQ DAILY 06/29/16 10/13/16 [Lantus] Insulin Lispro [Humalog] 4 - 8 unit SQ TIDWM 08/24/16 10/13/16 Isosorbide Dinitrate 5 mg PO TID 08/24/16 10/13/16 Acetaminophen 500 mg PO Q6H 10/13/16 10/13/16 Aspirin 81 mg PO DAILY 10/13/16 10/13/16 Clopidogrel [Plavix] 25 mg PO ONCE 10/13/16 10/13/16 oxyCODONE/ACET 5/325 [Percocet 5 1 - 2 each PO Q4-6H PRN #20 tablet 01/19/18 mg/325 mg] Amox/Clav 875/125 [Augmentin] 1 each PO Q12H #20 tablet 04/17/19 predniSONE [Deltasone] 20 mg PO [id number] #21 tab 04/17/19 - Allergies Allergies/Adverse Reactions: Allergies Allergy/AdvReac Type Severity Reaction Status Date / Time No Known Drug Allergies Allergy Verified 04/17/19 12:33 - Social History Does the pt smoke?: No Smoking Status: Never smoker Does the pt drink ETOH?: No Does the pt have substance abuse?: No - Immunizations Immunizations are current?: Yes - POLST Patient has POLST: No PD ED PE NORMAL - Vitals Vital signs reviewed: Yes - General General: Alert and oriented X 3, No acute distress - Cardiac Cardiac: RRR, No murmur - Respiratory Respiratory: No respiratory distress, Other (Slightly diminished throughout, no focal findings) - Abdomen Abdomen: Non tender - Extremities Extremities: No edema - Neuro Neuro: Alert and oriented X 3, Normal speech Results - Vitals Vitals: Vital Signs - 24 hr 04/17/19 12:33 Temperature 37.0 C Heart Rate 77 Respiratory 17 Rate Blood Pressure 113/87 H O2 Saturation 98 Oxygen O2 Source Room air PD MEDICAL DECISION MAKING - ED course ED course: This is a 59-year-old gentleman with a COPD exacerbation. Yeast in a re spiratory culture, should not be treated per up-to-date. He was on Bactrim, we will switch him up to Augmentin, he would like to try steroids and will watch his blood sugars closely. Departure - Departure Clinical Impression: COPD exacerbation Condition: Good Record reviewed to determine appropriate education?: Yes Instructions: COPD Dc Prescriptions: Amox/Clav 875/125 [Augmentin] 1 each PO Q12H #20 tablet predniSONE [Deltasone] 20 mg PO [id number] #21 tab Comments: Watch your blood sugars closely while on the steroids, it is likely they will go high and you may have an increased insulin requirement.
[2019-04-17 15:27] VITALS: BP 116/87
== END 2019-04-17 15:27 | disposition home or self-care (01) ==
LOC: ED 12:16
DX: J44.1 Chronic obstructive pulmonary disease with (acute) exacerbation (principal); I50.9 Heart failure, unspecified; E11.9 Type 2 diabetes mellitus without complications; Z79.4 Long term (current) use of insulin
CPT/HCPCS: 99282; 99283

== ENCOUNTER 2019-04-24 07:23 | Outpatient (CLI) | payer MEDICAID ==
[2019-04-24 10:54] LABS: HB2 TOTAL 14.6 g/dL; HEMOGLOBIN A1C 0.73 g/dL; HEMOGLOBIN A1C % 6.7 % (4.6-6.2)
== END 2019-04-24 07:24 | disposition home or self-care (01) ==
LOC: LAB.S 07:23
PROVIDERS: ATTEND Physician Assistant Medical
DX: E11.9 Type 2 diabetes mellitus without complications (principal)
CPT/HCPCS: 36415; 83036

== ENCOUNTER 2019-05-08 08:06 | Outpatient (CLI) | payer MEDICAID ==
[2019-05-08 10:20] LABS: BILIRUBIN,DIRECT 0.1 mg/dL (0.1-0.5); BILIRUBIN,TOTAL 0.5 mg/dL (0.2-1.0); TOTAL PROTEIN 6.8 g/dL (6.7-8.2)
== END 2019-05-08 08:07 | disposition home or self-care (01) ==
LOC: LAB.S 08:06
PROVIDERS: ATTEND Physician Assistant Medical
DX: Z79.899 Other long term (current) drug therapy (principal); B35.1 Tinea unguium
CPT/HCPCS: 36415; 80076

== ENCOUNTER 2019-07-05 07:28 | Outpatient (CLI) | payer MEDICAID ==
[2019-07-05 10:21] LABS: ALBUMIN 3.8 g/dL (3.2-5.5); ALKALINE PHOSPHATASE 65 IU/L (42-121); ALT ALANINE AMINOTRANSFERASE 26 IU/L (10-60); AST ASPARTATE AMINOTRANSFERASE 20 IU/L (10-42); BILIRUBIN,TOTAL 0.5 mg/dL (0.2-1.0); TOTAL PROTEIN 6.5 g/dL (6.7-8.2)
[2019-07-05 10:58] LABS: BILIRUBIN,DIRECT < 0.1 mg/dL (0.1-0.5)
== END 2019-07-05 07:29 | disposition home or self-care (01) ==
LOC: LAB.S 07:28
PROVIDERS: ATTEND Physician Assistant Medical
DX: B35.1 Tinea unguium (principal); Z79.899 Other long term (current) drug therapy
CPT/HCPCS: 36415; 80076

== ENCOUNTER 2019-07-08 08:14 | Outpatient (CLI) | payer MEDICAID ==
[2019-07-08 09:06] VITALS: BP 120/60
--- NOTE | 2019-07-08 09:06 | SLEEP CARE CONSULTATION ---
Information from patient questionnaire entered by Radha Addison. I have reviewed and concur with the information entered by Radha Addison. This document represents the service I personally performed and the decisions made by me, Hetal Miranda, RN, MSN, REGIONAL ENGAGEMENT CONSULTANT. History of Present Illness Previous diagnosis: Very Severe, Obstructive Sleep Apnea-Hypopnea Syndrome AHI: 70.9 Reason for follow up: other (11 MONTH ) Equipment type: CPAP Equipment obtained from: [employer] Mask style: Nasal (Wisp) Mask brand: Respironics Backup mask available: Yes (yes keeps old mask ) Last cushion change: month ago Prior sleep studies: Yes CPAP Compliance Data - Data Reviewed with Patient Average duration of nightly device use: 10H 35m Compliance rate %: 90 (this includes a daily nap ) Current pressure setting (cmH2O): 12 Humidity settin Heated hose settin Average residual AHI: 3.4 Average large leak: 40m 19s Subjective Missed days of use due to: reports: mask issues Patient concerns: reports: air blowing in eyes (when first gets mask - and he feels it due to the mask hitting pillow,so he adjusts pillow). denies: aerophagia, mask discomfort, mask leak noise, condensation in mask/hose, nasal congestion, dry mouth, nose, throat, epistaxis Observed to snore while using device: No Current pressure setting perceived as: comfortable On therapy, patient: reports: sleeping better, being more awake and alert during the day, more rested overall (except increase in fatigue noted the last month or 2. ). denies: drowsiness while driving Initial Straughn Sleepiness Scale score: 9 Current Straughn Sleepiness Scale score: 4 Allergies and Home Medications Known drug allergies: Yes Home medication list reviewed: Yes (changes reviewed and implemented- patient does not know doses) Allergy and home medication list: Medication Name (generic/name brand) Strength & Dosage Lantus 100 unit/ML 82 units SC daily prn Humalog 100 UNIT/ML 10U SC as directed with meals Lisinopril 5mg tab one daily Atorvastatin Calcium 80mg tab one daily at bedtime Glipizide 5mg tab one BID Trazadone 100mg 1-to 2 tablets HS Carvedilol (Coreg) 6.25mg tab one BID Ondansetron HCL 4mg tab one every 8 hours PRN Cyclobenzaprine HCL 10mg tab one up to TID prn muscle spasm Gabapentin 300mg cap 1-2 at bedtime Metformin HCL 1000mg tab one BID Clopidogrel Bisulfate 75mg tab one daily Furosemide 40kmg tab one daily Nitrostat 0.4mg SQ one prn hycosamine for abd pain - qid PROAIR HFA 108 (90 BASE) Inhale 1-3 puffs q4 hours PRN Flovent 2 puffs BID Ventolin HFA 1-2 puffs every 4-6 hours PRN Albuterol Sulfate 0.083% Nebulize every 4 hours PRN Fluticasone Propionate 50MCG/ACT one spray BID Vitamin D3 Cap one daily Probiotic daily oral cap One cap daily Aspirin EC 81mg tab one daily Omeprazole 20mg cap one daily Review of Systems Review of systems same as previous: No (increase in fatigue ) Physical Exam Blood Pressure: 120/60 Cuff size: long Heart Rate: 69 O2 Saturation: 96 Height: 6 ft 1 in Weight: 285 lb 6.4 oz Weight change since last visit: gained 10 pounds Body Mass Index: 37.6 BMI Classification: Obesity Class 2 Impression and Plan 1. Obstructive Sleep Apnea-Hypopnea Syndrome, very severe, with good treatment compliance and good apnea control. On CPAP therapy, the patient has better sleep quality and is more rested overall. His fatigue seems to be increasing again and he has an appointment scheduled with his sports physical therapist next week. His CPAP was updated but he had to transfer to another company as was not getting good service at previous DME. This first 30 days of compliance showed good CPAP use and apnea control. His current compliance also shows the good use and apnea control. The large mask leaks seem to be from when patient tries the full face mask as a break if nose got sore from nasal mask. Since he has been using a larger nasal cushion he has not had sore nose and addressed the proper size with [employer]. He is also advised to change mask cushion as often as allowed to improve mask seal. When mask leaks present, he was advised that he can use eye lubricating drops to reduce irritation of eyes or as preventative every night. He has gained some weight since last seen. I reviewed how this could affect his apnea severity and CPAP pressure. Thus he was advised to lose weight and start with smaller portions and slower eating. Patient agreed with plan. Patient's apnea severity and rationale for treatment to reduce apnea, improve sleep quality and reduce cardiovascular and cerebrovascular events was reviewed. I also reviewed the benefit of consistent device use of CPAP for cardiac disease, cerebrovascular disease, diabetes, gastric reflux. . Plan: * Continue CPAP pressure at 12 cmH2O * change mask cushion more regularly * Notify me if snoring with mask or feeling that the pressure is too much or too little * Attempt to lose weight * Call this office if any problems using CPAP * Return for follow up in 1 year , or sooner if concerns arise Time Spent with Patient (minutes): 30 I spent 100% of this visit face to face with the patient with greater than 50% of this was spent time counseling the patient and coordination of care.
== END 2019-07-08 08:15 | disposition home or self-care (01) ==
LOC: SC 08:14
PROVIDERS: ATTEND Nurse Practitioner Family
DX: G47.33 Obstructive sleep apnea (adult) (pediatric) (principal); E66.9 Obesity, unspecified; Z68.37 Body mass index [BMI] 37.0-37.9, adult
CPT/HCPCS: 99212; 99214

== ENCOUNTER 2019-08-23 07:22 | Outpatient (CLI) | payer MEDICAID ==
--- NOTE | 2019-08-23 16:20 | XRAY Report ---
Reason: SHORTNESS OF BREATH Procedure Date: 08/23/2019 Accession Number: [id number] / [id number] Procedure: XR - Chest 2 View X-Ray CPT Code: 42443 Final Report FULL RESULT: EXAM: CHEST RADIOGRAPHY EXAM DATE: 08/23/2019 09:44 AM. CLINICAL HISTORY: Shortness of breath. COMPARISON: CHEST 2 VIEW 04/05/2019 10:23 AM CHEST 1 VIEW 02/05/2016 12:01 PM. TECHNIQUE: 2 views. FINDINGS: Lungs/Pleura: Bilateral medial lower lung scarring. No consolidation. No vascular congestion. No pneumothorax. Hyperinflation. Mediastinum: Cardiomegaly. Aortic tortuosity. Aortic atherosclerosis. Hiatal hernia again seen measuring in transverse dimension 13.7 cm. Other: Degenerative changes of the thoracic spine and both shoulders. IMPRESSION: 1. Cardiomegaly. 2. Bilateral medial lower lung scarring, stable. 3. No new focal abnormality. 4. Hiatal hernia. RADIA
== END 2019-08-23 07:23 | disposition home or self-care (01) ==
LOC: DI.S 07:22 → DI 07:23
PROVIDERS: ATTEND Registered Nurse
DX: J98.4 Other disorders of lung (principal); K44.9 Diaphragmatic hernia without obstruction or gangrene; I51.7 Cardiomegaly; R53.83 Other fatigue; E78.5 Hyperlipidemia, unspecified; I50.9 Heart failure, unspecified; I25.10 Atherosclerotic heart disease of native coronary artery without angina pectoris; G47.33 Obstructive sleep apnea (adult) (pediatric); J44.9 Chronic obstructive pulmonary disease, unspecified
CPT/HCPCS: 36415; 71046; 80048; 83036; 84443; 85025

== ENCOUNTER 2019-08-23 08:17 | Outpatient (CLI) | payer MEDICAID ==
[2019-08-23 08:54] LABS: BASOPHILS # (AUTO) 0.1 10^3/uL (0.0-0.1); BASOPHILS % (AUTO) 0.7 %; EOSINOPHILS # (AUTO) 0.3 10^3/uL (0.0-0.7); LYMPHOCYTES # (AUTO) 1.5 10^3/uL (1.5-3.5); LYMPHOCYTES % (AUTO) 17.5 %; MEAN CORPUSCULAR HEMOGLOBIN 29.9 pg (27.0-31.0); MEAN CORPUSCULAR HGB CONC 32.3 g/dL (32.0-36.0); MEAN CORPUSCULAR VOLUME 92.5 fL (80.0-94.0); MEAN PLATELET VOLUME 10.2 fL (7.4-11.4); MONOCYTES # (AUTO) 0.7 10^3/uL (0.0-1.0); MONOCYTES % (AUTO) 8.1 %; NEUTROPHILS # (AUTO) 6.1 10^3/uL (1.5-6.6); NEUTROPHILS % (AUTO) 70.4 %; PLT - PLATELET COUNT 187 10^3/uL (130-450); RED BLOOD COUNT 4.68 10^6/uL (4.70-6.10); RED CELL DISTRIBUTION WIDTH 14.6 % (12.0-15.0); WHITE BLOOD COUNT 8.6 x10^3/uL (4.8-10.8)
[2019-08-23 09:04] LABS: CALCIUM 9.2 mg/dL (8.5-10.3); CREATININE 0.8 mg/dL (0.6-1.2)
[2019-08-23 09:09] LABS: HB2 TOTAL 14.6 g/dL; HEMOGLOBIN A1C 0.74 g/dL; HEMOGLOBIN A1C % 6.8 % (4.6-6.2)
== END 2019-08-23 08:18 | disposition home or self-care (01) ==
LOC: LAB 08:17
PROVIDERS: ATTEND Registered Nurse
DX: E78.5 Hyperlipidemia, unspecified (principal); R53.83 Other fatigue; I50.9 Heart failure, unspecified; I25.10 Atherosclerotic heart disease of native coronary artery without angina pectoris; G47.33 Obstructive sleep apnea (adult) (pediatric); J44.9 Chronic obstructive pulmonary disease, unspecified
CPT/HCPCS: 36415; 80048; 83036; 84443; 85025

== ENCOUNTER 2019-09-11 07:59 | Outpatient (CLI) | payer MEDICAID ==
--- NOTE | 2019-09-12 15:30 | CT Report ---
Reason: NICTOTINE USE Procedure Date: 09/11/2019 Accession Number: [id number] / [id number] Procedure: CT - Low Dose Lung Cancer Screen CPT Code: Final Report FULL RESULT: EXAM CT LUNG SCREEN EXAM DATE: 09/11/2019 08:10 AM. HISTORY: 59-year-old patient with [id number] smoking history. Currently smoking: No. Years since quittin years or less, quit in 2016. COMPARISON: None. TECHNIQUE: CT examination of the entire thorax without contrast was performed using low-dose technique. Thin section coronal, axial, sagittal and MIP axial images were obtained. In accordance with CT protocol optimization, one or more of the following dose reduction techniques were utilized for this exam: automated exposure control, adjustment of mA and/or KV based on patient size, or use of iterative reconstructive technique. FINDINGS: Nodules: Right upper lobe: None. Right middle lobe: None. Right lower lobe: None. Left upper lobe: 2 mm nodule peripherally on image 75 series 4. Left lower lobe: Fissure based 3 mm nodule on image 67 series 4. Emphysema: Minimal. Pleura: Unremarkable. Aorta: Mild to moderate calcifications. Mediastinum: Unremarkable. Coronary calcifications: Moderate. Other pulmonary findings: Bilateral linear changes at the lung bases demonstrate appearance most consistent with scarring or subsegmental atelectasis. Other extrapulmonary findings: Moderate size hiatal hernia, approximately 25% of the stomach as visualized. IMPRESSION: Lung-RADS ASSESSMENT CATEGORY: 2 - benign appearance or behavior. Probability of malignancy: Less than 1%. RECOMMENDATION: Continue annual chest LDCT. RADIA
== END 2019-09-11 08:00 | disposition home or self-care (01) ==
LOC: DI 07:59
PROVIDERS: ATTEND Registered Nurse
DX: Z12.2 Encounter for screening for malignant neoplasm of respiratory organs (principal); Z87.891 Personal history of nicotine dependence

== ENCOUNTER 2019-12-10 07:33 | Outpatient (CLI) | payer MEDICAID ==
[2019-12-10 15:21] LABS: BASOPHILS # (AUTO) 0.1 10^3/uL (0.0-0.1); BASOPHILS % (AUTO) 1.1 %; EOSINOPHILS # (AUTO) 0.4 10^3/uL (0.0-0.7); EOSINOPHILS % (AUTO) 4.3 %; HGB - HEMOGLOBIN 13.9 g/dL (14.0-18.0); LYMPHOCYTES # (AUTO) 1.7 10^3/uL (1.5-3.5); LYMPHOCYTES % (AUTO) 20.8 %; MEAN CORPUSCULAR HEMOGLOBIN 30.1 pg (27.0-31.0); MEAN CORPUSCULAR HGB CONC 32.6 g/dL (32.0-36.0); MEAN CORPUSCULAR VOLUME 92.2 fL (80.0-94.0); MEAN PLATELET VOLUME 10.8 fL (7.4-11.4); MONOCYTES # (AUTO) 0.8 10^3/uL (0.0-1.0); MONOCYTES % (AUTO) 9.6 %; NEUTROPHILS # (AUTO) 5.3 10^3/uL (1.5-6.6); NEUTROPHILS % (AUTO) 63.8 %; PLT - PLATELET COUNT 173 10^3/uL (130-450); RED BLOOD COUNT 4.62 10^6/uL (4.70-6.10); RED CELL DISTRIBUTION WIDTH 15.1 % (12.0-15.0); WHITE BLOOD COUNT 8.3 x10^3/uL (4.8-10.8)
[2019-12-10 15:41] LABS: ALBUMIN 3.9 g/dL (3.2-5.5); ALBUMIN/GLOBULIN RATIO 1.5 (1.0-2.2); ALKALINE PHOSPHATASE 58 IU/L (42-121); ALT ALANINE AMINOTRANSFERASE 25 IU/L (10-60); AST ASPARTATE AMINOTRANSFERASE 19 IU/L (10-42); BILIRUBIN,TOTAL 0.5 mg/dL (0.2-1.0); BUN - BLOOD UREA NITROGEN 15 mg/dL (6-20); CALCIUM 8.7 mg/dL (8.5-10.3); CARBON DIOXIDE - CO2 28 mmol/L (21-32); CHLORIDE 101 mmol/L (101-111); CHOL/HDL RATIO 4.2 (<5.0); CHOLESTEROL 122 mg/dL; CREATININE 0.8 mg/dL (0.6-1.2); GLUCOSE 140 mg/dL (70-100); HDL CHOLESTEROL 29 mg/dL; LDL CHOLESTEROL,CALCULATED 71 mg/dL; LDL/HDL RATIO 2.4 (<3.6); SODIUM 137 mmol/L (135-145); TOTAL PROTEIN 6.5 g/dL (6.7-8.2); VLDL CHOLESTEROL 22 mg/dL
== END 2019-12-10 07:34 | disposition home or self-care (01) ==
LOC: LAB.S 07:33
PROVIDERS: ATTEND Registered Nurse
DX: E11.9 Type 2 diabetes mellitus without complications (principal); R06.02 Shortness of breath; E78.5 Hyperlipidemia, unspecified; I50.9 Heart failure, unspecified; G47.33 Obstructive sleep apnea (adult) (pediatric); J44.9 Chronic obstructive pulmonary disease, unspecified; E66.01 Morbid (severe) obesity due to excess calories
CPT/HCPCS: 36415; 80053; 80061; 83721; 84443; 85025

== ENCOUNTER 2019-12-11 13:54 | Outpatient (CLI) | payer MEDICAID | END 2019-12-11 23:59 | disposition home or self-care (01) | LOC: LAB.R 13:54 | PROVIDERS: ATTEND Family Medicine | DX: Z20.828 Contact with and (suspected) exposure to other viral communicable diseases (principal); R06.02 Shortness of breath | CPT/HCPCS: 81599 ==

== ENCOUNTER 2020-03-09 08:00 | Outpatient (CLI) | payer MEDICAID ==
--- NOTE | 2020-03-09 10:10 | XRAY Report ---
PROCEDURE: Toe(s) LT INDICATIONS: PAIN IN LEFT TOE TECHNIQUE: 3 views of the left lateral toe(s) acquired. COMPARISON: None FINDINGS: Bones: There is a minimally displaced intra-articular fracture seen at the base of the proximal phal anx of the fifth toe, seen on one image. No additional fractures or dislocations. No suspicious bony lesions. Incidental note is made of an accessory ossicle, an os peroneum. Soft tissues: No suspicious soft tissue densities. IMPRESSION: Minimally displaced intra-articular fracture seen of the base of the proximal phalanx of the fifth to e. Reviewed by: Jasvir Dumont MD on 03/09/2020 9:09 AM FRANCISCO JAVIER Approved by: Jasvir Dumont MD on 03/09/2020 9:09 AM FRANCISCO JAVIER Station ID: [id number]
== END 2020-03-09 23:59 | disposition home or self-care (01) ==
LOC: DI.S 08:00
PROVIDERS: ATTEND Physician Assistant
DX: S92.512A Displaced fracture of proximal phalanx of left lesser toe(s), initial encounter for closed fracture (principal)
CPT/HCPCS: 73660

== ENCOUNTER 2020-03-16 18:49 | Outpatient (CLI) | payer MEDICAID ==
--- NOTE | 2020-03-17 10:27 | XRAY Report ---
PROCEDURE: Shoulder 3 View RT INDICATIONS: SHOULDER PAIN, RIGHT TECHNIQUE: 3 views of the shoulder were acquired. COMPARISON: None. FINDINGS: Bones: No fractures or dislocations. Moderate degenerative changes at the acromial clavicular artic ulation. No suspicious bony lesions. Visualized ribs appear intact. Soft tissues: There is trace, wispy calcification in the region of the rotator cuff tendon adjacent t o the humeral head. IMPRESSION: 1. Wispy calcification at the rotator cuff tendon suggesting calcific tendinitis. 2. Moderate AC joint degeneration. Reviewed by: Luma Bella MD on 03/17/2020 10:25 AM PDT Approved by: Luma Bella MD on 03/17/2020 10:25 AM PDT Station ID: [id number]
--- NOTE | 2020-03-17 10:29 | XRAY Report ---
PROCEDURE: Knee 3 View LT INDICATIONS: KNEE PAIN, LEFT TECHNIQUE: 3 views of the left knee(s) were acquired. COMPARISON: None. FINDINGS: Bones: No fractures or dislocations. Marked degenerative medial compartment joint space loss. Maria Esther ening of the medial femoral condyle. Possible curvilinear lucency of the medial femoral condyle. Prom inent marginal spur formation. Mild lateral compartment joint space loss and flattening of the latera l femoral condyle. Moderate diffuse patellofemoral compartment joint space loss and prominent spur fo rmation. No suspicious bony lesions. Soft tissues: Trace joint effusion. No suspicious soft tissue calcifications. Moderate atheroscler otic calcification. IMPRESSION: 1. Moderate to severe tricompartment osteoarthritic changes, most extensive in the medial compartment . 2. Possible curvilinear lucency in the medial femoral condyle may indicate osteochondral defect. Gl[employer] nicity is uncertain. Consider MRI for further evaluation. Reviewed by: Luma Bella MD on 03/17/2020 10:28 AM PDT Approved by: Luma Bella MD on 03/17/2020 10:28 AM PDT Station ID: [id number]
== END 2020-03-16 18:50 | disposition home or self-care (01) ==
LOC: DI 18:49
PROVIDERS: ATTEND Orthopaedic Surgery
DX: M75.91 Shoulder lesion, unspecified, right shoulder (principal); M19.011 Primary osteoarthritis, right shoulder; M17.12 Unilateral primary osteoarthritis, left knee; R93.6 Abnormal findings on diagnostic imaging of limbs

== ENCOUNTER 2020-04-02 07:13 | Outpatient (CLI) | payer MEDICAID ==
[2020-04-02 15:26] LABS: ALBUMIN 3.8 g/dL (3.2-5.5); ALBUMIN/GLOBULIN RATIO 1.4 (1.0-2.2); BILIRUBIN,TOTAL 0.7 mg/dL (0.2-1.0); CALCIUM 8.9 mg/dL (8.5-10.3); CREATININE 0.8 mg/dL (0.6-1.2); TOTAL PROTEIN 6.5 g/dL (6.7-8.2)
[2020-04-02 15:52] LABS: CREATININE,URINE 263.8 mg/dL; MICROALBUM/CREATININE RATIO,UR 5.7 ug/mg (<30.0); MICROALBUMIN,URINE 1.5 mg/dL (0-300.0)
[2020-04-02 20:28] LABS: HEMOGLOBIN A1c% 6.9 % (4.27-6.07)
== END 2020-04-02 07:14 | disposition home or self-care (01) ==
LOC: LAB.S 07:13
PROVIDERS: ATTEND Registered Nurse
DX: B49 Unspecified mycosis (principal); E11.9 Type 2 diabetes mellitus without complications; I50.9 Heart failure, unspecified; R53.83 Other fatigue
CPT/HCPCS: 36415; 80053; 82043; 82306; 82570; 83036

== ENCOUNTER 2020-04-28 11:03 | Outpatient (CLI) | payer MEDICAID ==
--- NOTE | 2020-04-28 11:46 | XRAY Report ---
PROCEDURE: Chest 2 View X-Ray INDICATIONS: CHEST PAIN,LEFT TECHNIQUE: 2 view(s) of the chest. COMPARISON: 2.20 chest x-ray FINDINGS: Surgical changes and devices: None. Lungs and pleura: No pleural effusions or pneumothorax. Lungs are clear. Mediastinum: Large hiatal hernia. Mediastinal contours are otherwise normal. Heart size is normal. Bones and chest wall: No suspicious bony abnormalities. Soft tissues appear unremarkable. IMPRESSION: 1. No acute process. 2. Large hiatal hernia. Reviewed by: Karoline Brown MD on 04/28/2020 11:44 AM PDT Approved by: Karoline Brown MD on 04/28/2020 11:44 AM PDT Station ID: [id number]
== END 2020-04-28 23:59 | disposition home or self-care (01) ==
LOC: DI.S 11:03
PROVIDERS: ATTEND Physician Assistant
DX: R07.89 Other chest pain (principal); K44.9 Diaphragmatic hernia without obstruction or gangrene

== ENCOUNTER 2020-04-28 12:58 | Emergency (ER) | payer MEDICAID ==
[2020-04-28 13:31] LABS: BASOPHILS # (AUTO) 0.1 10^3/uL (0.0-0.1); BASOPHILS % (AUTO) 0.7 %; EOSINOPHILS # (AUTO) 0.2 10^3/uL (0.0-0.7); EOSINOPHILS % (AUTO) 2.7 %; HGB - HEMOGLOBIN 13.6 g/dL (14.0-18.0); LYMPHOCYTES # (AUTO) 1.6 10^3/uL (1.5-3.5); LYMPHOCYTES % (AUTO) 19.5 %; MEAN CORPUSCULAR HEMOGLOBIN 30.4 pg (27.0-31.0); MEAN CORPUSCULAR HGB CONC 33.4 g/dL (32.0-36.0); MEAN CORPUSCULAR VOLUME 91.1 fL (80.0-94.0); MONOCYTES # (AUTO) 0.8 10^3/uL (0.0-1.0); MONOCYTES % (AUTO) 9.8 %; NEUTROPHILS # (AUTO) 5.4 10^3/uL (1.5-6.6); NEUTROPHILS % (AUTO) 66.7 %; PLT - PLATELET COUNT 158 10^3/uL (130-450); RED BLOOD COUNT 4.47 10^6/uL (4.70-6.10); RED CELL DISTRIBUTION WIDTH 14.9 % (12.0-15.0); WHITE BLOOD COUNT 8.1 x10^3/uL (4.8-10.8)
--- NOTE | 2020-04-28 13:43 | XRAY Report ---
PROCEDURE: Chest 1 View X-Ray INDICATIONS: Chest Pain TECHNIQUE: One view of the chest was acquired. COMPARISON: 04/28/2020, 08/23/2019, 04/05/2019 FINDINGS: Surgical changes and devices: None. Lungs and pleura: No pleural effusions or pneumothorax. Lungs are clear. Mediastinum: Mediastinal contours appear normal. Heart size is at the upper limits of normal. The known hiatal hernia is not well seen on the study. Bones and chest wall: No suspicious bony lesions. Age-appropriate degenerative changes are seen. Overlying soft tissues appear unremarkable. IMPRESSION: No significant abnormality is seen by plain film. Reviewed by: Jasvir Dumont MD on 04/28/2020 12:42 PM AKSPEEDY Approved by: Jasvir Dumont MD on 04/28/2020 12:42 PM AKSPEEDY Station ID: [id number]
[2020-04-28 13:45] LABS: ALBUMIN 3.6 g/dL (3.2-5.5); ALBUMIN/GLOBULIN RATIO 1.3 (1.0-2.2); BILIRUBIN,TOTAL 0.5 mg/dL (0.2-1.0); CALCIUM 8.7 mg/dL (8.5-10.3); CREATININE 0.8 mg/dL (0.6-1.2); TOTAL PROTEIN 6.4 g/dL (6.7-8.2)
--- NOTE | 2020-04-28 13:58 | ED Physician Documentation ---
History of Present Illness - Stated complaint Stated Complaint: CHEST PX - Chief complaint Chief Complaint: Cardiac - Additonal information Additional information: 60-year-old male presents the emergency department for evaluation of 48 hours worth of chest pain. He reports that it hurts to take a deep breath so he is trying not to breathe deeply. He denies an exertional component to this chest pain. He also reports that his right calf has been hurting. He does have a history of previous PR in 2016. he denies leg swelling, hemoptysis. He deneis radiation of chest pain. No n/v/d. He has no previous history of DVT PE or cancer. He reports that he did travel to [place] via car about 2 weeks ago. Past medical history includes congestive heart failure, COPD, hypertension, diabetes mellitus, previous myocardial infarction. His last A1c was 6.9. Meds: Plavix, lisinopril, Flexeril, terbinafine L, albuterol, Spiriva, Metformin, atorvastatin, trazodone, Lasix, gabapentin, montelukast, Lantus, Humalog. Review of Systems Constitutional: reports: Fever Eyes: reports: Loss of vision Ears: reports: Loss of hearing Cardiac: reports: Chest pain / pressure, Calf pain. denies: Palpitations, Pedal edema Respiratory: reports: Dyspnea. denies: Cough, Hemoptysis, Wheezing GI: reports: Abdominal Pain (chronic left sided; hernia and previous colitis). denies: Nausea, Vomiting, Constipation, Diarrhea, Hematemesis, Bloody / black stool : reports: Reviewed and negative Skin: reports: Reviewed and negative Musculoskeletal: reports: Reviewed and negative Neurologic: reports: Reviewed and negative PD PAST MEDICAL HISTORY - Past Medical History Past Medical History: Yes Cardiovascular: Congestive heart failure, High cholesterol, Coronary artery disease, Angina, Murmur, Other Respiratory: COPD, Shortness of breath, Sleep apnea, CPAP use Endocrine/Autoimmune: Type 2 diabetes GI: GERD, GI bleed, Ulcers, Colon polyps, Chronic diarrhea, Other : None HEENT: None Psych: None Musculoskeletal: Osteoarthritis, Chronic back pain Derm: None - Past Surgical History Past Surgical History: Yes General: Bowel surgery, Colonoscopy Ortho: Spine surgery Cardiovascular: Coronary stent, Valve replacement, Other - Present Medications Home Medications: Ambulatory Orders Medication Instructions Recorded Confirmed Albuterol [Ventolin Hfa] 2 puffs INH DAILY 12/28/13 04/13/17 Beclomethasone 80 Mcg [Qvar 80] 1 puffs INH DAILY 06/29/13 10/13/16 Fluticasone [Flonase] 2 sprays ANUP BID 06/29/13 10/13/16 Gabapentin [Neurontin] 600 mg PO HS 06/29/13 10/13/16 Lisinopril [Zestril] 5 mg PO DAILY 06/29/13 10/13/16 Metformin HCl [Fortamet] 1,000 mg PO BID 06/29/13 10/13/16 Omeprazole [PriLOSEC] 20 mg PO DAILY 06/29/13 10/13/16 glipiZIDE [Glucotrol] 10 - 15 mg PO BID 06/29/13 10/13/16 Cholecalciferol (Vitamin D3) 10,000 unit PO DAILY 09/02/13 10/13/16 [Vitamin D-3] traMADol [Ultram] 50 mg PO DAILY 12/19/13 10/13/16 Albuterol 2.5 mg INH Q4H PRN #30 neb 11/25/14 10/13/16 Furosemide [Lasix] 40 mg PO DAILY #20 tablet 11/25/14 10/13/16 hydrOXYzine pamoate [Hydroxyzine 100 mg PO QPM 11/25/14 10/13/16 Pamoate] Atorvastatin [Lipitor] 80 mg ORAL DAILY 02/05/16 10/13/16 Metoprolol Succinate 25 mg PO BID 02/05/16 10/13/16 Nitroglycerin 0.4 mg SL PRN PRN 02/05/16 10/13/16 Clopidogrel Bisulfate [Clopidogrel] 75 mg PO DAILY 06/29/16 10/13/16 Cyclobenzaprine HCl 10 mg PO DAILY 06/29/16 10/13/16 Dicyclomine [Bentyl] 20 mg PO QID 06/29/16 10/13/16 Insulin Glargine,Hum.rec.anlog 82 unit SQ DAILY 06/29/16 10/13/16 [Lantus] Insulin Lispro [Humalog] 4 - 8 unit SQ TIDWM 08/24/16 10/13/16 Isosorbide Dinitrate 5 mg PO TID 08/24/16 10/13/16 Acetaminophen 500 mg PO Q6H 10/13/16 10/13/16 Aspirin 81 mg PO DAILY 10/13/16 10/13/16 Clopidogrel [Plavix] 25 mg PO ONCE 10/13/16 10/13/16 oxyCODONE/ACET 5/325 [Percocet 5 1 - 2 each PO Q4-6H PRN #20 tablet 01/19/ mg/325 mg] Amox/Clav 875/125 [Augmentin] 1 each PO Q12H #20 tablet 04/17/19 predniSONE [Deltasone] 20 mg PO [id number] #21 tab 04/17/19 - Allergies Allergies/Adverse Reactions: Allergies Allergy/AdvReac Type Severity Reaction Status Date / Time No Known Drug Allergies Allergy Verified 04/28/20 13:31 - Social History Does the pt smoke?: No Smoking Status: Never smoker Does the pt drink ETOH?: No Does the pt have substance abuse?: No - Immunizations Immunizations are current?: Yes - POLST Patient has POLST: No PD ED PE EXPANDED - General General: Alert, Well developed/nourished, Other (Obese) - Neck Neck: Supple w/out meningeal sx. No: Stiff neck, Brudzinki's, Kernig's, JVD present, Adenopathy - Cardiac Cardiac: Regular Rate, Regular Rhythm, Murmur Present, Radial strong equal, Pedal strong equal, Cap refill < 2 sec - Respiratory Respiratory: Clear to ausultation jimmy, Other (pleuritic chest pain with deep inspiration). No: Distress, Labored - Abdomen Abdomen: Normal Bowel sounds, Tender to palpation (at right sided hernia) - Extremities Extremities: Right calf TTP/cord, Left calf TTP/cord (Right > Left celf TTP). No: Swelling, Pedal edema bilateral - Neuro Neuro: Alert and Oriented X 3, CNII-XII intact - GCS Eye Opening: Spontaneous Motor: Obeys Commands Verbal: Oriented Total: 15 Results - Vitals Vitals: Vital Signs - 24 hr 04/28/20 04/28/20 13:23 13:33 Temperature 36.7 C Heart Rate 73 76 Respiratory 16 17 Rate Blood Pressure 120/69 129/71 O2 Saturation 98 98 Oxygen O2 Source Room air - EKG (time done) 1311 Rate: Rate (enter#) (69) Rhythm: NSR Intervals: RBBB QRS: Normal Ischemia: Normal ST segments Compare to prior EKG: Unchanged from prior EKG Computer interpretation: Agree with computer - Labs Labs: Laboratory Tests 04/28/20 04/28/20 04/28/20 13:15 13:15 13:15 WBC 8.1 RBC 4.47 L Hgb 13.6 L Hct 40.7 L MCV 91.1 MCH 30.4 MCHC 33.4 RDW 14.9 Plt Count 158 MPV 10.0 Neut # (Auto) 5.4 Lymph # (Auto) 1.6 [place] # (Auto) 0.8 Eos # (Auto) 0.2 Baso # (Auto) 0.1 Absolute Nucleated RBC 0.00 Nucleated RBC % 0.0 Sodium 136 Potassium 3.9 Chloride 100 L Carbon Dioxide 26 Anion Gap 10.0 BUN 13 Creatinine 0.8 Estimated GFR (MDRD) 99 Glucose 139 H Calcium 8.7 Total Bilirubin 0.5 AST 19 ALT 27 Alkaline Phosphatase 50 Troponin I High Sens 9.1 Total Protein 6.4 L Albumin 3.6 Globulin 2.8 Albumin/Globulin Ratio 1.3 Lipase 21 L 04/28/20 15:14 WBC RBC Hgb Hct MCV MCH MCHC RDW Plt Count MPV Neut # (Auto) Lymph # (Auto) [place] # (Auto) Eos # (Auto) Baso # (Auto) Absolute Nucleated RBC Nucleated RBC % Sodium Potassium Chloride Carbon Dioxide Anion Gap BUN Creatinine Estimated GFR (MDRD) Glucose Calcium Total Bilirubin AST ALT Alkaline Phosphatase Troponin I High Sens 8.2 Total Protein Albumin Globulin Albumin/Globulin Ratio Lipase - Rads (name of study) CXR: Radiology: Final report received (No acute cardiopulmonary process) CT angio chest Radiology: Final report received (No pulmonary embolus identified.) US DVT Radiology: Final report received (No deep vein thrombosis identified) PD MEDICAL DECISION MAKING - ED course Complexity details: reviewed old records, reviewed results, re-evaluated patient, considered differential, d/w patient, d/w family ED course: 60-year-old male presents to the emergency department with chief complaint of pleuritic chest pain for 3 days. On exam I noted that he did have some right calf leg tenderness without swelling. He did report travel by car to [place] about 2 weeks ago. His EKG today shows right bundle branch block which is unchanged from October 2014 ECG. His high-sensitivity troponin was negative. Delta troponin was completed and it is also normal. Suspicion for ACS is low. We did proceed with a CT angio of the chest to rule out a pulmonary embolus and no PE was identified. He did report calf leg tenderness but an ultrasound did not show any DVT. The tech reported that she noted that he was having spasms in the muscles of the leg which likely are the cause of his tenderness. His chest x-ray shows no findings consistent with pneumonia. At this time it is not clear what the etiology of his pleuritic chest pain is. We will complete our exam today with COVID-19 screening. I have advised this gentleman to take Tylenol or ibuprofen at home for pain. He will continue close follow-up with his primary care provider and return to the emergency department for reevaluation if worsening Departure - Departure Disposition: 01 Home, Self Care Clinical Impression: Pleuritic chest pain, History of diabetes mellitus, type II Condition: Stable Record reviewed to determine appropriate education?: Yes Follow-Up: Latonya Wright ARNP [Primary Care Provider] - Within 1 week Comments: Nakul I hope that you are feeling better soon. Your ECG today is unchanged from the most recent one you had in 2015. Your chest x-ray, CT angiogram of your chest, and ultrasound of your legs do not show findings of a pulmonary embolus, deep vein thrombosis, or pneumonia. Your labs are also otherwise reassuring. You are not having a heart attack. We will screen you today for Covid 19 though you lack the typical symptoms for COVID-19. I would like you to discuss this emergency department visit with your primary care provider. At home I recommend that you take Tylenol [id number] for pain or you may also try Tylenol. If your symptoms are worsening, you have fainting episodes, develop any swelling of your legs or feel that you cannot breathe well please return to the ER.
[2020-04-28] MEDS ORDERED: IOVERSOL 320 100 ML VIAL IVP ONE ×2 (14:12→17:22)
--- NOTE | 2020-04-28 14:41 | CT Report ---
PROCEDURE: ANGIO CHEST W/WO INDICATIONS: pleuritic chest pain; right calf pain CONTRAST: IV CONTRAST: Optiray 320 ml: 80 PO CONTRAST: *NO PO CONTRAST TECHNIQUE: After the administration of intravenous contrast, 2 mm thick sections acquired from the pulmonary api bobo to the posterior costophrenic angles. 3-dimensional maximum intensity projection (MIP) coronal a nd sagittal reformats were then acquired through the thorax. For radiation dose reduction, the follow ing was used: automated exposure control, adjustment of mA and/or kV according to patient size. COMPARISON: FINDINGS: Image quality: Excellent. Pulmonary arteries: Pulmonary arteries are normal in size, and demonstrate no intraluminal filling d efects to suggest central pulmonary embolism. Lungs and pleura: Lungs are clear. No pleural effusions or pneumothorax. Central and peripheral ai rways are patent. Mediastinum: Heart size is normal, without pericardial effusion. No mediastinal or hilar adenopathy . Thoracic aorta is normal in caliber and enhancement. Esophagus is normal in caliber, but there is a moderate-sized hiatal hernia behind the heart. Bones and chest wall: No suspicious bony lesions. Ribs and thoracic spine appear intact throughout. The thyroid is normal. No axillary or supraclavicular adenopathy. Abdomen: Visualized upper abdominal solid organs appear normal in the early arterial phase of enhanc ement. IMPRESSION: No acute disease. Moderate-sized hiatal hernia behind the heart. No evidence of pulmonary embolism. Reviewed by: Fazal Loaiza MD on 04/28/2020 2:39 PM PDT Approved by: Fazal Loaiza MD on 04/28/2020 2:39 PM PDT Station ID: [id number]
--- NOTE | 2020-04-28 15:36 | Ultrasound Report ---
PROCEDURE: Duplex Ext Veins Bilateral INDICATIONS: Pleuritic chest pain with calf tenderness (right greater than left) TECHNIQUE: Real-time imaging, as well as color and pulse Doppler interrogation, were performed of the deep veins of both legs from the inguinal ligament to the popliteal fossa. COMPARISON: None. FINDINGS: The deep veins are normally compressible, and free of intraluminal thrombus. Color and pu lse Doppler demonstrate normal phasic intravascular flow. There is normal augmentation response to d istal compression maneuver. IMPRESSION: Limited study due to patient motion. No sonographic evidence of DVT. Reviewed by: Enrqiue Winston MD on 04/28/2020 3:35 PM PDT Approved by: Enrique Winston MD on 04/28/2020 3:35 PM PDT Station ID: [id number]
[2020-04-28 16:59] VITALS: BP 146/72
== END 2020-04-28 17:18 | disposition home or self-care (01) ==
LOC: ED 12:58
DX: R07.81 Pleurodynia (principal); E11.9 Type 2 diabetes mellitus without complications; I11.0 Hypertensive heart disease with heart failure; I50.9 Heart failure, unspecified; I25.119 Atherosclerotic heart disease of native coronary artery with unspecified angina pectoris; Z79.4 Long term (current) use of insulin; Z20.828 Contact with and (suspected) exposure to other viral communicable diseases
CPT/HCPCS: 36415; 71045; 71275; 80053; 83690; 84484; 85025; 87635; 93005; 93970; 99284; Q9967

== ENCOUNTER 2020-07-27 08:58 | Outpatient (CLI) | payer MEDICAID ==
--- NOTE | 2020-07-27 10:30 | SLEEP CARE CONSULTATION ---
Information from patient questionnaire entered by Ella Stout. I have reviewed and concur with the information entered by Ella Stout. This document represents the service I personally performed and the decisions made by me, Josesito Cook MD, [facility]. History of Present Illness Service Date and Time: 07/27/2020 0858 Previous diagnosis: Very Severe, Obstructive Sleep Apnea-Hypopnea Syndrome AHI: 70.9 (in 2013) Reason for follow up: annual (last seen 07/2019) Equipment type: CPAP Equipment obtained from: [employer] Mask style: Nasal Prior sleep studies: Yes Year and Where: 2013 - [facility] Type of Sleep Study: Polysomnography HPI additional information: HPI: Mr. Zhang was diagnosed to have very severe obstructive sleep apnea- hypopnea syndrome and returns today for follow up of CPAP therapy. The patient purchased the device from [employer] but is getting supplies from [employer]. He wears both a nasal mask and full face mask. He continues to use the device nightly and all through the night. The compliance report shows that he uses the device 178 nights out of the past 180 nights, averaging 9.8 hours a night. He complains of dry mouth and noises from mask air leak. He thinks that the pressure of 12 cmH2O is comfortable. On the CPAP therapy he notices improvement in his sleep quality, and that he wakes up feeling fresher in the morning and more awake/alert during the day. His notices no snore at all. [place] Sleepiness Scale score is 3. The average residual AHI is 5.8; and average time in large leak per day is 43 minutes a night. CPAP Compliance Data - Data Reviewed with Patient Average duration of nightly device use: 9 hr 50 min Compliance rate %: 98.3 (180 days) Current pressure setting (cmH2O): 12 Humidity settin Heated hose settin Average residual AHI: 5.8 Average large leak: 43 min 5 sec Subjective Missed days of use due to: reports: other (power outage) Patient concerns: reports: air blowing in eyes, mask leak noise, dry mouth, nose, throat Initial [place] Sleepiness Scale score: 9 (in 2013) Current [place] Sleepiness Scale score: 3 Allergies and Home Medications Drug allergies reviewed: Yes Home medication list reviewed: Yes Review of Systems Review of systems same as previous: Yes Physical Exam Vital signs obtained and entered by: To minimize the risk of COVID-19 exposure, detailed exam was not performed Height: 6 ft 1 in Weight: 280 lb Body Mass Index: 36.9 BMI Classification: Obese Impression and Plan IMPRESSION: 1. Obstructive Sleep Apnea-Hypopnea Syndrome, very severe (AHI was 70.9), with the patient continuing to do well on nasal CPAP therapy. He has excellent compliance and significant clinical benefits. The current pressure appears slightly ineffective but comfortable. Overall, he is very satisfied with treatment and plans to continue with it long-term. To make the device more effective, I will raise the pressure. I also showed him other mask types. PLAN: 1. Change device to autoCPAP and set at 10 - 15 cm H2O. 2. Try to lose weight 3. Try either a Violet F30 or a Respironics DreamWear full face mask. 4. Return in for a follow up in 2 months to recheck the residual AHI. Visit Type: In Office Time Spent with Patient (minutes): 20 Provider Statement: I spent 100% of the Face to Face Visit with the patient with greater than 50% spent counseling the patient and coordination of care.
== END 2020-07-27 08:59 | disposition home or self-care (01) ==
LOC: SC 08:58
PROVIDERS: ATTEND Internal Medicine Pulmonary Disease
DX: G47.33 Obstructive sleep apnea (adult) (pediatric) (principal); E66.9 Obesity, unspecified; Z68.36 Body mass index [BMI] 36.0-36.9, adult
CPT/HCPCS: 99212; 99213

== ENCOUNTER 2020-10-02 07:44 | Outpatient (CLI) | payer MEDICAID ==
[2020-10-02 15:30] LABS: BASOPHILS # (AUTO) 0.1 10^3/uL (0.0-0.1); EOSINOPHILS # (AUTO) 0.3 10^3/uL (0.0-0.7); EOSINOPHILS % (AUTO) 4.1 %; HCT - HEMATOCRIT 43.8 % (42.0-52.0); HGB - HEMOGLOBIN 14.1 g/dL (14.0-18.0); LYMPHOCYTES # (AUTO) 1.7 10^3/uL (1.5-3.5); LYMPHOCYTES % (AUTO) 21.1 %; MEAN CORPUSCULAR HEMOGLOBIN 29.9 pg (27.0-31.0); MEAN CORPUSCULAR HGB CONC 32.2 g/dL (32.0-36.0); MEAN PLATELET VOLUME 10.3 fL (7.4-11.4); MONOCYTES # (AUTO) 0.7 10^3/uL (0.0-1.0); MONOCYTES % (AUTO) 9.1 %; NEUTROPHILS % (AUTO) 64.4 %; PLT - PLATELET COUNT 183 10^3/uL (130-450); RED BLOOD COUNT 4.71 10^6/uL (4.70-6.10); RED CELL DISTRIBUTION WIDTH 14.4 % (12.0-15.0); WHITE BLOOD COUNT 7.8 x10^3/uL (4.8-10.8)
[2020-10-02 15:37] LABS: MICROALBUM/CREATININE RATIO,UR 5.5 ug/mg (<30.0); MICROALBUMIN,URINE 1.4 mg/dL (0-300.0)
[2020-10-02 15:57] LABS: ALBUMIN 3.9 g/dL (3.2-5.5); ALBUMIN/GLOBULIN RATIO 1.4 (1.0-2.2); ALKALINE PHOSPHATASE 53 IU/L (42-121); ALT ALANINE AMINOTRANSFERASE 39 IU/L (10-60); AST ASPARTATE AMINOTRANSFERASE 25 IU/L (10-42); BILIRUBIN,TOTAL 0.7 mg/dL (0.2-1.0); BUN - BLOOD UREA NITROGEN 14 mg/dL (6-20); CALCIUM 8.9 mg/dL (8.5-10.3); CARBON DIOXIDE - CO2 29 mmol/L (21-32); CHLORIDE 102 mmol/L (101-111); CHOL/HDL RATIO 3.6 (<5.0); CHOLESTEROL 115 mg/dL; CREATININE 0.7 mg/dL (0.6-1.2); GFR - MDRD 116 (>89); GLUCOSE 132 mg/dL (70-100); HDL CHOLESTEROL 32 mg/dL; LDL CHOLESTEROL,CALCULATED 60 mg/dL; LDL/HDL RATIO 1.9 (<3.6); POTASSIUM 3.8 mmol/L (3.5-5.0); SODIUM 139 mmol/L (135-145); TOTAL PROTEIN 6.7 g/dL (6.7-8.2); TRIGLYCERIDES 114 mg/dL; VLDL CHOLESTEROL 23 mg/dL
[2020-10-02 16:13] LABS: THYROID STIMULATING HORMONE 2.13 uIU/mL (0.34-5.60)
[2020-10-02 19:51] LABS: ESTIMATED AVERAGE GLUCOSE 157 mg/dL (70-100); HEMOGLOBIN A1c% 7.1 % (4.27-6.07)
[2020-10-03 10:42] LABS: HEPATITIS C ANTIBODY NON-REACTIVE (NON-REACTIVE)
== END 2020-10-02 07:45 | disposition home or self-care (01) ==
LOC: LAB.S 07:44
PROVIDERS: ATTEND Registered Nurse
DX: E11.9 Type 2 diabetes mellitus without complications (principal); I50.9 Heart failure, unspecified; I25.10 Atherosclerotic heart disease of native coronary artery without angina pectoris; G47.33 Obstructive sleep apnea (adult) (pediatric); J44.9 Chronic obstructive pulmonary disease, unspecified; G47.00 Insomnia, unspecified; Z11.59 Encounter for screening for other viral diseases
CPT/HCPCS: 36415; 80053; 80061; 82043; 82570; 83036; 83721; 84153; 84443; 85025; 86803

== ENCOUNTER 2020-10-05 08:41 | Outpatient (CLI) | payer MEDICAID ==
--- NOTE | 2020-10-05 09:43 | SLEEP CARE CONSULTATION ---
Information from patient questionnaire entered by Za Worthy. I have reviewed and concur with the information entered by Za Worthy. This document represents the service I personally performed and the decisions made by me, Josesito Cook MD, [facility]. History of Present Illness Service Date and Time: 10/05/2020 0841 Previous diagnosis: Very Severe, Obstructive Sleep Apnea-Hypopnea Syndrome AHI: 70.9 Reason for follow up: other (2-month followup - pressure change) Equipment type: CPAP Equipment obtained from: [employer] Mask style: Full face Prior sleep studies: Yes Year and Where: 2013 [facility] HPI additional information: HPI: Mr. Zhang was diagnosed to have very severe obstructive sleep apnea- hypopnea syndrome and returns today for follow up of CPAP therapy after pressure change made 2 months ago. The patient purchased the device from [employer] but is getting supplies from [employer]. He wears both a nasal mask and a full face mask. He continues to use the device nightly and all through the night. The compliance report shows that he uses the device 30 nights out of the past 30 nights, averaging 9.8 hours a night. He complains of dry mouth and noises from mask air leak. He thinks that the pressure of 10 - 15 cmH2O (was 12 cmH2O) remains comfortable. On the CPAP therapy he notices improvement in his sleep quality, and that he wakes up feeling fresher in the morning and more awake/alert during the day. His notices no snore at all. [place] Sleepiness Scale score is 3. The average residual AHI is 5.2 (was 5.8); and average time in large leak per day is 1 minute a night. Subjective Initial [place] Sleepiness Scale score: 18 (in 2013) Current [place] Sleepiness Scale score: 3 Allergies and Home Medications Drug allergies reviewed: Yes Home medication list reviewed: Yes Review of Systems Review of systems same as previous: Yes Physical Exam Height: 6 ft 1 in Weight: 285 lb Body Mass Index: 37.5 BMI Classification: Obese Impression and Plan IMPRESSION: 1. Obstructive Sleep Apnea-Hypopnea Syndrome, very severe (AHI was 70.9), with the patient continuing to do well on nasal CPAP therapy. He continues to have excellent compliance and significant clinical benefits. The current pressure appears effective but comfortable. Overall, he is very satisfied with treatment and plans to continue with it long-term. No adjustment is necessary today. PLAN: 1. Leave autoCPAP at 10 - 15 cm H2O. 2. Try to lose weight 3. Return for follow up in a year or earlier if there is any problem. Counseling Topics: Weight control Visit Type: In Office Time Spent with Patient (minutes): 15 Provider Statement: I spent 100% of the Face to Face Visit with the patient with greater than 50% spent counseling the patient and coordination of care.
== END 2020-10-05 08:42 | disposition home or self-care (01) ==
LOC: SC 08:41
PROVIDERS: ATTEND Internal Medicine Pulmonary Disease
DX: G47.33 Obstructive sleep apnea (adult) (pediatric) (principal); E66.9 Obesity, unspecified; Z68.37 Body mass index [BMI] 37.0-37.9, adult
CPT/HCPCS: 99212

== ENCOUNTER 2020-10-06 10:38 | Emergency (ER) | payer MEDICAID ==
[2020-10-06] MEDS ORDERED: DEXAMETHASONE 10 MG/ML VIAL IM STA (11:41)
[2020-10-06 11:57] LABS: BASOPHILS # (AUTO) 0.1 10^3/uL (0.0-0.1); BASOPHILS % (AUTO) 0.8 %; EOSINOPHILS # (AUTO) 0.4 10^3/uL (0.0-0.7); EOSINOPHILS % (AUTO) 3.9 %; HCT - HEMATOCRIT 41.9 % (42.0-52.0); HGB - HEMOGLOBIN 13.5 g/dL (14.0-18.0); LYMPHOCYTES # (AUTO) 1.7 10^3/uL (1.5-3.5); LYMPHOCYTES % (AUTO) 19.2 %; MEAN CORPUSCULAR HEMOGLOBIN 29.6 pg (27.0-31.0); MEAN CORPUSCULAR HGB CONC 32.2 g/dL (32.0-36.0); MEAN CORPUSCULAR VOLUME 91.9 fL (80.0-94.0); MEAN PLATELET VOLUME 9.9 fL (7.4-11.4); MONOCYTES # (AUTO) 0.9 10^3/uL (0.0-1.0); MONOCYTES % (AUTO) 9.9 %; NEUTROPHILS # (AUTO) 5.9 10^3/uL (1.5-6.6); NEUTROPHILS % (AUTO) 65.5 %; PLT - PLATELET COUNT 173 10^3/uL (130-450); RED BLOOD COUNT 4.56 10^6/uL (4.70-6.10); RED CELL DISTRIBUTION WIDTH 14.3 % (12.0-15.0)
--- NOTE | 2020-10-06 12:17 | XRAY Report ---
PROCEDURE: Chest 1 View X-Ray INDICATIONS: chest pain TECHNIQUE: One view of the chest was acquired. COMPARISON: 04/28/2020 FINDINGS: Surgical changes and devices: None. Lungs and pleura: No pleural effusions or pneumothorax. Lungs are clear. Mediastinum: Mediastinal contours appear normal. Heart size is normal. Bones and chest wall: No suspicious bony lesions. Overlying soft tissues appear unremarkable. IMPRESSION: No acute cardiopulmonary pathology. Reviewed by: Cheko Valencia MD on 10/06/2020 12:16 PM PDT Approved by: Cheko Valencia MD on 10/06/2020 12:16 PM PDT Station ID: [id number]
[2020-10-06 12:55] VITALS: BP 128/70
--- NOTE | 2020-10-06 12:59 | ED Physician Documentation ---
History of Present Illness - Stated complaint Stated Complaint: SOA - Chief complaint Chief Complaint: Resp - History obtained from History obtained from: Patient - Additonal information Additional information: Patient comes emergency department chief complaint of shortness of breath and wheezing. Patient states that he has an appointment coming up with his certified nurse aide on the , but that he has been having a lot of episodes of wheezing and that it has been getting harder for him to get around and do things he needs to do. Patient denies chest pain. No nausea or vomiting. No fevers or chills. He states he is coughing a little more than usual. Patient states he has been bringing up thick sputum. Patient has a history of COPD and CHF. He uses the nebulizer and inhaler at home, and states he is feeling a little better now than he was earlier. He is on Lasix and this keeps his lower extremity edema down. Patient states it has not been any worse lately than it usually is. No other complaints at this time. Review of Systems Ten Systems: 10 systems reviewed and negative Constitutional: reports: Reviewed and negative Eyes: reports: Reviewed and negative Ears: reports: Reviewed and negative Nose: reports: Reviewed and negative Throat: reports: Reviewed and negative Cardiac: reports: Reviewed and negative Respiratory: reports: Dyspnea, Cough, Wheezing GI: reports: Reviewed and negative : reports: Reviewed and negative Skin: reports: Reviewed and negative Musculoskeletal: reports: Reviewed and negative Neurologic: reports: Reviewed and negative Psychiatric: reports: Reviewed and negative Endocrine: reports: Reviewed and negative Immunocompromised: reports: Reviewed and negative PD PAST MEDICAL HISTORY - Past Medical History Past Medical History: Yes Cardiovascular: Congestive heart failure, High cholesterol, Coronary artery disease, Angina, Murmur, Other Respiratory: COPD, Shortness of breath, Sleep apnea, CPAP use Neuro: None Endocrine/Autoimmune: Type 2 diabetes GI: GERD, GI bleed, Ulcers, Colon polyps, Chronic diarrhea, Other : None HEENT: None Psych: None Musculoskeletal: Osteoarthritis, Chronic back pain Derm: None - Past Surgical History Past Surgical History: Yes General: Bowel surgery, Colonoscopy Ortho: Spine surgery Cardiovascular: Coronary stent, Valve replacement, Other - Present Medications Home Medications: Ambulatory Orders Medication Instructions Recorded Confirmed Albuterol [Ventolin Hfa] 2 puffs INH DAILY 06/29/13 10/13/16 Beclomethasone 80 Mcg [Qvar 80] 1 puffs INH DAILY 06/29/13 10/13/16 Fluticasone [Flonase] 2 sprays ANUP BID 06/29/13 10/13/16 Gabapentin [Neurontin] 600 mg PO HS 06/29/13 10/13/16 Lisinopril [Zestril] 5 mg PO DAILY 06/29/13 10/13/16 Metformin HCl [Fortamet] 1,000 mg PO BID 06/29/13 10/13/16 Omeprazole [PriLOSEC] 20 mg PO DAILY 06/29/13 10/13/16 glipiZIDE [Glucotrol] 10 - 15 mg PO BID 06/29/13 10/13/16 Cholecalciferol (Vitamin D3) 10,000 unit PO DAILY 09/02/13 10/13/16 [Vitamin D-3] traMADol [Ultram] 50 mg PO DAILY 12/19/13 10/13/16 Albuterol 2.5 mg INH Q4H PRN #30 neb 11/25/14 10/13/16 Furosemide [Lasix] 40 mg PO DAILY #20 tablet 11/25/14 10/13/16 hydrOXYzine pamoate [Hydroxyzine 100 mg PO QPM 11/25/14 10/13/16 Pamoate] Atorvastatin [Lipitor] 80 mg ORAL DAILY 02/05/16 10/13/16 Metoprolol Succinate 25 mg PO BID 02/05/16 10/13/16 Nitroglycerin 0.4 mg SL PRN PRN 02/05/16 10/13/16 Clopidogrel Bisulfate [Clopidogrel] 75 mg PO DAILY 06/29/16 10/13/16 Cyclobenzaprine HCl 10 mg PO DAILY 06/29/16 10/13/16 Dicyclomine [Bentyl] 20 mg PO QID 06/29/16 10/13/16 Insulin Glargine,Hum.rec.anlog 82 unit SQ DAILY 06/29/16 10/13/16 [Lantus] Insulin Lispro [Humalog] 4 - 8 unit SQ TIDWM 08/24/16 10/13/16 Isosorbide Dinitrate 5 mg PO TID 08/24/16 10/13/16 Acetaminophen 500 mg PO Q6H 10/13/16 10/13/16 Aspirin 81 mg PO DAILY 10/13/16 10/13/16 Clopidogrel [Plavix] 25 mg PO ONCE 10/13/16 10/13/16 oxyCODONE/ACET 5/325 [Percocet 5 1 - 2 each PO Q4-6H PRN #20 tablet 01/19/ mg/325 mg] Amox/Clav 875/125 [Augmentin] 1 each PO Q12H #20 tablet 04/17/19 predniSONE [Deltasone] 20 mg PO [id number] #21 tab 04/17/19 predniSONE [Deltasone] 10 mg PO [id number] #42 tab 10/06/20 - Allergies Allergies/Adverse Reactions: Allergies Allergy/AdvReac Type Severity Reaction Status Date / Time No Known Drug Allergies Allergy Verified 10/06/20 10:41 - Social History Does the pt smoke?: No Smoking Status: Never smoker Does the pt drink ETOH?: No Does the pt have substance abuse?: No - Immunizations Immunizations are current?: Yes - POLST Patient has POLST: No PD ED PE NORMAL - Vitals Vital signs reviewed: Yes - General General: Alert and oriented X 3, No acute distress, Well developed/nourished - HEENT HEENT: Atraumatic, PERRL, EOMI, Moist mucous membranes - Neck Neck: Supple, no meningeal sign - Cardiac Cardiac: RRR, No murmur - Respiratory Respiratory: No respiratory distress, Clear bilaterally - Abdomen Abdomen: Soft, Non tender, Non distended - Derm Derm: Normal color, Warm and dry, No rash - Extremities Extremities: No deformity, No edema, No calf tenderness / cord - Neuro Neuro: Alert and oriented X 3, instructional aide 2-12 intact, Normal speech - Psych Psych: Normal mood, Normal affect Results - Vitals Vitals: Vital Signs - 24 hr 10/06/20 10/06/20 10:42 12:55 Temperature 36 C L 36.8 C Heart Rate 72 64 Respiratory 20 16 Rate Blood Pressure 148/65 H 128/70 O2 Saturation 99 96 Oxygen O2 Source Room air - Labs Labs: Laboratory Tests 10/06/20 10/06/20 11:52 11:52 WBC 9.0 RBC 4.56 L Hgb 13.5 L Hct 41.9 L MCV 91.9 MCH 29.6 MCHC 32.2 RDW 14.3 Plt Count 173 MPV 9.9 Neut # (Auto) 5.9 Lymph # (Auto) 1.7 Divide # (Auto) 0.9 Eos # (Auto) 0.4 Baso # (Auto) 0.1 Absolute Nucleated RBC 0.00 Nucleated RBC % 0.0 B-Natriuretic Peptide 42 - Rads (name of study) CXR Radiology: Final report received, EMP read indepedently, See rad report (neg) PD MEDICAL DECISION MAKING - ED course Complexity details: reviewed results, re-evaluated patient, considered differential, d/w patient ED course: The patient overall was fairly well-appearing and his lung exam was normal. He was worked up with labs, which were unremarkable, including a BNP. His chest x- ray was also negative. I discussed with the patient that at this point, his lung exam is actually clear, and I am not sure why he is feeling the sense of shortness of breath and wheezing. It does seem to be helped by his nebulizer/inhaler, though, and it may be helpful to have a short course of steroids added to this. We have discussed home management of symptoms, as well as usual indications for return. The patient has a primary care appointment coming up on the and should follow-up for this as planned. Departure - Departure Disposition: Home, Self Care Clinical Impression: Mild chronic obstructive pulmonary disease Condition: Stable Instructions: ED COPD Flare Prescriptions: predniSONE [Deltasone] 10 mg PO [id number] #42 tab Comments: Your lung exam is completely clear today. Your oxygen saturation is good, and your chest x-ray is clear. Additionally, the lab work does not show any evidence of congestive heart failure. It is not clear why you have had the wheezing and shortness of breath more than usual lately; however, it may be helpful for you to be on a short course of steroids to help settle this down, in addition to your inhaled medication. Please continue your plans to follow up with your doctor as planned later this month. Discharge Date/Time: 10/06/20 13:33
== END 2020-10-06 13:33 | disposition home or self-care (01) ==
LOC: ED 10:38
DX: J44.9 Chronic obstructive pulmonary disease, unspecified (principal); Z86.79 Personal history of other diseases of the circulatory system; E11.9 Type 2 diabetes mellitus without complications; Z79.4 Long term (current) use of insulin; I25.10 Atherosclerotic heart disease of native coronary artery without angina pectoris; Z95.5 Presence of coronary angioplasty implant and graft; Z95.2 Presence of prosthetic heart valve; Z79.02 Long term (current) use of antithrombotics/antiplatelets; Z79.82 Long term (current) use of aspirin
CPT/HCPCS: 36415; 83880; 85025; 96372; 99283

== ENCOUNTER 2020-10-28 07:10 | Outpatient (CLI) | payer MEDICAID ==
--- NOTE | 2020-10-28 08:30 | CT Report ---
PROCEDURE: Low Dose Lung Cancer Screen INDICATIONS: FORMER SMOKER TECHNIQUE: Noncontrast low-dose 5 mm thick sections acquired from the pulmonary apices to the posterior costophr enic angles. 7 mm thick coronal and sagittal MIP reformats were then acquired. For radiation dose r eduction, the following was used: automated exposure control, adjustment of mA and/or kV according t o patient size. COMPARISON: CT angiogram of the chest 04/28/2020 FINDINGS: Image quality: Excellent. Lungs and pleura: No suspicious pulmonary nodule or mass. Bibasilar atelectasis. No significant pleu ral abnormality. Central airways are clear. Mediastinum: Heart size is normal. No pericardial effusion. Coronary and aortic atherosclerosis. T he thoracic aorta and central pulmonary arteries are normal in size. No threshold enlarged mediastina l or hilar lymph node identified in the absence of IV contrast. Bones and chest wall: No suspicious bony lesions. No vertebral body compression fractures. No axil alison or supraclavicular adenopathy by size criteria. The thyroid is normal in size. Abdomen: Small to moderate sized hiatal hernia. Visualized upper abdomen solid organs and bowel loops grossly unremarkable otherwise absence of contrast. IMPRESSION: Lung-RADS Category 1: No suspicious pulmonary nodule or mass. Recommendation: Continued annual low-dose CT of the chest for lung cancer screening. Coronary and aortic atherosclerosis. Reviewed by: Enrique Winston MD on 10/28/2020 8:29 AM PDT Approved by: Enrique Winston MD on 10/28/2020 8:29 AM PDT Station ID: [id number]
== END 2020-10-28 07:11 | disposition home or self-care (01) ==
LOC: DI 07:10
PROVIDERS: ATTEND Registered Nurse
DX: Z12.2 Encounter for screening for malignant neoplasm of respiratory organs (principal); I25.10 Atherosclerotic heart disease of native coronary artery without angina pectoris; I70.0 Atherosclerosis of aorta; Z87.891 Personal history of nicotine dependence

== ENCOUNTER 2020-11-28 08:00 | Outpatient (CLI) | payer MEDICAID ==
[2020-11-28 15:27] LABS: H. PYLORIS ANTIGEN STL NEGATIVE (Negative)
== END 2020-11-28 23:59 | disposition home or self-care (01) ==
LOC: LAB.S 08:00
PROVIDERS: ATTEND Emergency Medicine
DX: R19.7 Diarrhea, unspecified (principal)
CPT/HCPCS: 87177; 87209; 87338; 87493

== ENCOUNTER 2021-03-29 12:20 | Outpatient (CLI) | payer MEDICAID ==
--- NOTE | 2021-03-29 13:24 | SLEEP CARE CONSULTATION ---
Information from patient questionnaire entered by Radha Addison. I have reviewed and concur with the information entered by Radha Addison. This document represents the service I personally performed and the decisions made by me, Josesito Cook MD, [facility]. History of Present Illness Service Date and Time: 03/29/2021 1220 Previous diagnosis: Very Severe, Obstructive Sleep Apnea-Hypopnea Syndrome AHI: 70.9 Reason for follow up: other (5 month and CPAP recall) Equipment type: CPAP Equipment obtained from: [employer] Mask style: Full face Prior sleep studies: Yes Year and Where: 2013 [facility] HPI additional information: Mr. Zhang was diagnosed to have very severe obstructive sleep apnea-hypopnea syndrome and returns today for annual follow up of CPAP therapy. He wears both a nasal mask and a full face mask. He continues to use the device every night and all night. The compliance report shows that prior to quitting he used the device 87 nights out of the past 90 nights, averaging 9.7 hours a night. He complains of dry mouth and noises from mask air leak. He thinks that the pressure of 10 - 15 cmH2O (was 12 cmH2O) remains comfortable. On the CPAP therapy he notices improvement in his sleep quality, and that he wakes up feeling fresher in the morning and more awake/alert during the day. [place] Sleepiness Scale score is 2. The average residual AHI is 3.1 (was 5.2); and average time in large leak per day is 44 minutes (was 1 minute) a night. However, since December, the leak has returned to 0. Sleep Study - Results Prior sleep studies: Yes Year and Where: 2013 [facility] CPAP Compliance Data - Data Reviewed with Patient Average duration of nightly device use: 9 hours 44 minutes Compliance rate %: 95.6 Current pressure setting (cmH2O): 10-15 Humidity settin Heated hose settin Average residual AHI: 2.3 Average large leak: 28 minutes 23 seconds Subjective Missed days of use due to: reports: other (POWER OUTAGE) Patient concerns: reports: mask leak noise, other (CPAP recall) Initial [place] Sleepiness Scale score: 18 (in 2012) Current [place] Sleepiness Scale score: 2 Allergies and Home Medications Drug allergies reviewed: Yes Home medication list reviewed: Yes Review of Systems Review of systems same as previous: Yes Physical Exam Height: 6 ft 1 in Weight: 285 lb Body Mass Index: 37.5 BMI Classification: Obese Impression and Plan IMPRESSION: 1. Obstructive Sleep Apnea-Hypopnea Syndrome, very severe (AHI was 70.9), with the patient continuing to do well on nasal CPAP therapy. He continues to have excellent compliance and significant clinical benefits. The current pressure appears effective but comfortable. Overall, he is very satisfied with treatment and plans to continue with it long-term. No adjustment is necessary today. In regards to the recall on all [employer] devices, we discussed the risks and benefits of stopping versus continuing to use the device. In severe cases, it appears the benefits outweigh the risks and it is reasonable to continue until the replace part or machine becomes available. Symptoms that could be related to the recalled sound abatement foam piece are headache, nausea, chest tightness, and upper airway irritation. The patients should also look for debris in the air outlet, water reservoir, and hose. If found, the device should not be used. In [id number] cases, the patients should refrain from using the device. The patient has already registered his two CPAPs for replacement. PLAN: 1. Leave autoCPAP at 10 - 15 cm H2O. 2. Try to lose weight 3. Wait for the replacement part or new machines. 4. Return for follow up in a year or earlier if there is any problem. Follow up recommended for: Weight management Visit Type: In Office Time Spent with Patient (minutes): 15 Provider Statement: I spent 100% of the Face to Face Visit with the patient with greater than 50% spent counseling the patient and coordination of care.
== END 2021-03-29 12:21 | disposition home or self-care (01) ==
LOC: SC 12:20
PROVIDERS: ATTEND Internal Medicine Pulmonary Disease
DX: G47.33 Obstructive sleep apnea (adult) (pediatric) (principal); E66.9 Obesity, unspecified; Z68.37 Body mass index [BMI] 37.0-37.9, adult
CPT/HCPCS: 99212

== ENCOUNTER 2021-04-06 13:10 | Outpatient (CLI) | payer MEDICAID | END 2021-04-06 23:59 | LOC: LAB.S 13:10 | PROVIDERS: ATTEND Emergency Medicine | DX: R11.0 Nausea (principal); J44.1 Chronic obstructive pulmonary disease with (acute) exacerbation; Z20.822 Contact with and (suspected) exposure to COVID-19 ==

== ENCOUNTER 2021-04-23 20:22 | Emergency (ER) | payer MEDICAID ==
[2021-04-23] MEDS ORDERED: KETOROLAC 30 MG/ML VIAL IM STA (21:07)
[2021-04-23] MEDS ORDERED: diazePAM 5 MG TABLET PO STA (21:07)
--- NOTE | 2021-04-23 21:07 | ED Physician Documentation ---
PD HPI BACK PAIN - Stated complaint Stated Complaint: BACK SPASMS - Chief complaint Chief Complaint: Back Pain - Additional information Additional information: 61-year-old male with a past medical history of chronic lower back pain, multiple prior back surgeries and known canal stenosis who presents with approximately 3 weeks of worsening back spasms. Back spasms or bilateral lower back, no radiation into the legs or feet. He has no fever, no bowel or bladder changes, no lower extremity weakness or numbness. He denies any trauma or lifting or twisting. He has tried Flexeril and Aleve in the past however his doctor recently discontinued this according to him and told him to do stretching and activity. He had been doing some stretching when the spasms seem to get worse. He has not had any relief with atfu-bis-jcjcheq Tylenol or ibuprofen. Not currently taking any muscle relaxers. Review of Systems Ten Systems: 10 systems reviewed and negative Musculoskeletal: reports: Back pain PD PAST MEDICAL HISTORY - Past Medical History Past Medical History: Yes Cardiovascular: Congestive heart failure, High cholesterol, Coronary artery disease, Angina, Murmur, Other Respiratory: COPD, Shortness of breath, Sleep apnea, CPAP use Neuro: None Endocrine/Autoimmune: Type 2 diabetes GI: GERD, GI bleed, Ulcers, Colon polyps, Chronic diarrhea, Other : None HEENT: None Psych: None Musculoskeletal: Osteoarthritis, Chronic back pain Derm: None - Past Surgical History Past Surgical History: Yes General: Bowel surgery, Colonoscopy Ortho: Spine surgery Cardiovascular: Coronary stent, Valve replacement, Other - Present Medications Home Medications: Ambulatory Orders Medication Instructions Recorded Confirmed Albuterol [Ventolin Hfa] 2 puffs INH DAILY 06/29/13 10/13/16 Beclomethasone 80 Mcg [Qvar 80] 1 puffs INH DAILY 06/29/13 10/13/16 Fluticasone [Flonase] 2 sprays ANUP BID 06/29/13 10/13/16 Gabapentin [Neurontin] 600 mg PO HS 06/29/13 10/13/16 Lisinopril [Zestril] 5 mg PO DAILY 06/29/13 10/13/16 Metformin HCl [Fortamet] 1,000 mg PO BID 06/29/13 10/13/16 Omeprazole [PriLOSEC] 20 mg PO DAILY 06/29/13 10/13/16 glipiZIDE [Glucotrol] 10 - 15 mg PO BID 06/29/13 10/13/16 Cholecalciferol (Vitamin D3) 10,000 unit PO DAILY 09/02/13 10/13/16 [Vitamin D-3] traMADol [Ultram] 50 mg PO DAILY 12/19/13 10/13/16 Albuterol 2.5 mg INH Q4H PRN #30 neb 11/25/14 10/13/16 Furosemide [Lasix] 40 mg PO DAILY #20 tablet 11/25/14 10/13/16 hydrOXYzine pamoate [Hydroxyzine 100 mg PO QPM 11/25/14 10/13/16 Pamoate] Atorvastatin [Lipitor] 80 mg ORAL DAILY 02/05/16 10/13/16 Metoprolol Succinate 25 mg PO BID 02/05/16 10/13/16 Nitroglycerin 0.4 mg SL PRN PRN 02/05/16 10/13/16 Clopidogrel Bisulfate [Clopidogrel] 75 mg PO DAILY 06/29/16 10/13/16 Cyclobenzaprine HCl 10 mg PO DAILY 06/29/16 10/13/16 Dicyclomine [Bentyl] 20 mg PO QID 06/29/16 10/13/16 Insulin Glargine,Hum.rec.anlog 82 unit SQ DAILY 06/29/16 10/13/16 [Lantus] Insulin Lispro [Humalog] 4 - 8 unit SQ TIDWM 08/24/16 10/13/16 Isosorbide Dinitrate 5 mg PO TID 08/24/16 10/13/16 Acetaminophen 500 mg PO Q6H 10/13/16 10/13/16 Aspirin 81 mg PO DAILY 10/13/16 10/13/16 Clopidogrel [Plavix] 25 mg PO ONCE 10/13/16 10/13/16 oxyCODONE/ACET 5/325 [Percocet 5 1 - 2 each PO Q4-6H PRN #20 tablet 01/19/18 mg/325 mg] Amox/Clav 875/125 [Augmentin] 1 each PO Q12H #20 tablet 04/17/19 predniSONE [Deltasone] 20 mg PO [id number] #21 tab 04/17/19 predniSONE [Deltasone] 10 mg PO [id number] #42 tab 10/06/20 HYDROcod/ACETAM 5/325 [[place] 5/325] 1 - 2 tablet PO Q6H PRN #14 tablet 04/23/21 tiZANidine [Zanaflex] 4 mg PO Q8H #12 tablet 04/23/21 - Allergies Allergies/Adverse Reactions: Allergies Allergy/AdvReac Type Severity Reaction Status Date / Time No Known Drug Allergies Allergy Verified 04/23/21 20:42 - Social History Does the pt smoke?: No Smoking Status: Never smoker Does the pt drink ETOH?: No Does the pt have substance abuse?: No - Immunizations Immunizations are current?: Yes - POLST Patient has POLST: No PD ED PE NORMAL - Vitals Vital signs reviewed: Yes - General General: Alert and oriented X 3, No acute distress - HEENT HEENT: Atraumatic, Moist mucous membranes - Neck Neck: Supple, no meningeal sign, No bony TTP - Cardiac Cardiac: RRR, No murmur - Respiratory Respiratory: No respiratory distress, Clear bilaterally - Abdomen Abdomen: Normal bowel sounds, Soft, Non tender, Non distended - Back Back: No CVA TTP, No spinal TTP, Other (Bilateral lumbar paravertebral muscle spasms and tenderness, no bony spine tenderness) - Derm Derm: Normal color, Warm and dry, No rash - Extremities Extremities: No deformity, No tenderness to palpate, Normal ROM s pain, No edema, No calf tenderness / cord - Neuro Neuro: Alert and oriented X 3 Eye Opening: Spontaneous Motor: Obeys Commands Verbal: Oriented GCS Score: 15 - Psych Psych: Normal mood, Normal affect Results - Vitals Vitals: Vital Signs - 24 hr 04/23/21 04/23/21 20:39 22:27 Temperature 36.5 C 36.2 C L Heart Rate 73 79 Respiratory 16 16 Rate Blood Pressure 133/62 H 144/60 H O2 Saturation 96 98 Oxygen O2 Source Room air PD MEDICAL DECISION MAKING - ED course Complexity details: re-evaluated patient, considered differential, d/w patient ED course: 61-year-old with A history of lower back pain presents with acute on chronic lower back pain, not relieved by home treatment. No acute trauma, no signs of cauda equina syndrome or acute surgical emergency. I did obtain a plain film to evaluate for any possible bony injury Due to duration of pain and this was negative. I discussed potential treatment from the ER including pain medication, diazepam as a muscle relaxer, and Toradol. The patient received both with some improvement to not significant improvement in the pain. I then gave 1 mg of IV M Dilaudid which allowed patient to be more ambulatory. Will discharge him home with a short course of tizanidine and Charlotte and patient to follow-up with his primary care provider next week. 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 Reviewed return precautions including fever, abdominal pain with saddle anesthesia or bowel or bladder changes or lower extremity weakness or numbness. Departure - Departure Disposition: , Self Care Clinical Impression: Back pain Qualifiers: Back pain location: low back pain Chronicity: acute Back pain laterality: bilateral Sciatica presence: without sciatica Qualified Code(s): M54.50 - Low back pain, unspecified Condition: Good Instructions: ED Low Back Pain Injury, ED Chronic Pain Management Prescriptions: HYDROcod/ACETAM 5/325 [[place] 5/325] 1 - 2 tablet PO Q6H PRN #14 tablet PRN Reason: Pain tiZANidine [Zanaflex] 4 mg PO Q8H #12 tablet Discharge Date/Time: 04/23/21 22:29
[2021-04-23] MEDS ORDERED: HYDROmorphone 1 MG/ML CARPUJECT IM STA (21:56)
--- NOTE | 2021-04-23 22:02 | XRAY Report ---
PROCEDURE: Lumbar Spine 2 View INDICATIONS: pain TECHNIQUE: 3 views of the lumbar spine were acquired. COMPARISON: None. FINDINGS: Bones: 5 bwy-wqs-ptaontl vertebrae are present. There is normal bony alignment. No vertebral body compression fractures. No suspicious bony lesions. Multilevel disc space loss. Multilevel facet art hropathy. Suspect canal stenosis. Soft tissues: Overlying bowel gas pattern is normal. No suspicious soft tissue calcifications. IMPRESSION: Diffuse degenerative change. Suspect canal stenosis. No evidence acute bony abnormality of the lumbar spine. If clinical suspicion and/or symptoms persist, further assessment with repeat plain films or advanced imaging (e.g., CT, MRI, or bone scan) may be helpful for further assessment. Reviewed by: Oni Land MD on 04/23/2021 10:00 PM PDT Approved by: Oni Land MD on 04/23/2021 10:00 PM PDT Station ID: [id number]
[2021-04-23 22:28] VITALS: BP 144/60
== END 2021-04-23 22:29 | disposition home or self-care (01) ==
LOC: ED 20:22
DX: M54.50 Low back pain, unspecified (principal); J44.9 Chronic obstructive pulmonary disease, unspecified; I50.9 Heart failure, unspecified; I25.10 Atherosclerotic heart disease of native coronary artery without angina pectoris; G47.30 Sleep apnea, unspecified
CPT/HCPCS: 72100; 96372; 99283; A9270; J1170

== ENCOUNTER 2021-04-29 07:16 | Outpatient (CLI) | payer MEDICAID ==
[2021-04-29 15:48] LABS: CALCIUM 9.1 mg/dL (8.5-10.3); CREATININE 0.8 mg/dL (0.6-1.2); POTASSIUM 3.9 mmol/L (3.5-5.0)
[2021-04-29 16:31] LABS: MICROALBUM/CREATININE RATIO,UR 5.1 ug/mg (<30.0); MICROALBUMIN,URINE 1.4 mg/dL (0-300.0)
[2021-04-29 20:15] LABS: ESTIMATED AVERAGE GLUCOSE 151 mg/dL (70-100); HEMOGLOBIN A1c% 6.9 % (4.27-6.07)
== END 2021-04-29 07:17 | disposition home or self-care (01) ==
LOC: LAB.S 07:16
PROVIDERS: ATTEND Registered Nurse
DX: E11.39 Type 2 diabetes mellitus with other diabetic ophthalmic complication (principal)
CPT/HCPCS: 36415; 80048; 82043; 82570; 83036

== ENCOUNTER 2021-06-02 08:00 | Outpatient (CLI) | payer MEDICAID ==
--- NOTE | 2021-06-02 14:24 | XRAY Report ---
PROCEDURE: Chest 2 View X-Ray INDICATIONS: BRONCHITIS TECHNIQUE: 2 view(s) of the chest. COMPARISON: 10/06/2020. FINDINGS: Surgical changes and devices: None. Lungs and pleura: No pleural effusions or pneumothorax. Ill-defined airspace opacity is noted in rig ht upper lung field. Left lung is clear. Mediastinum: Mildly tortuous thoracic aorta is seen. Heart size is enlarged. Bones and chest wall: No suspicious bony abnormalities. Soft tissues appear unremarkable. IMPRESSION: Finding is concerning for developing right upper lobe infiltrate. No pleural effusion or pneumothorax. Reviewed by: Cheko Valencia MD on 06/02/2021 2:23 PM PST Approved by: Cheko Valencia MD on 06/02/2021 2:23 PM PST Station ID: [id number]
== END 2021-06-02 23:59 | disposition home or self-care (01) ==
LOC: DI.S 08:00
PROVIDERS: ATTEND Physician Assistant
DX: J44.1 Chronic obstructive pulmonary disease with (acute) exacerbation (principal); R91.8 Other nonspecific abnormal finding of lung field; Z20.822 Contact with and (suspected) exposure to COVID-19

== ENCOUNTER 2021-06-13 11:00 | Emergency (ER) | payer MEDICAID ==
--- NOTE | 2021-06-13 12:26 | ED Physician Documentation ---
PD HPI UPPER EXT INJURY - Stated complaint Stated Complaint: LEFT SHOULDER PX - Chief complaint Chief Complaint: Ext Problem - History obtained from History obtained from: Patient - History of Present Illness Location: Left, Shoulder Type of injury: Twist (he was on roof for repairs and slipped on sarah. He reached for the peak to keep from sliding off and had twisting external and upward of the shoulder, with pain onset and feeling of a "pop". Hurts for lifting arm and reaching forward.) Where injury occurred: Work Timing - onset: Today Timing - duration: Hours Timing - details: Abrupt onset, Still present Worsened by: Moving Associated symptoms: No: Weakness, Numbness, Swelling Similar symptoms before: Has not had sx before Review of Systems Skin: denies: Abrasion (s), Laceration (s) Neurologic: denies: Focal weakness, Numbness PD PAST MEDICAL HISTORY - Past Medical History Cardiovascular: Congestive heart failure, High cholesterol, Coronary artery disease, Angina, Murmur, Other Respiratory: COPD, Shortness of breath, Sleep apnea, CPAP use Neuro: None Endocrine/Autoimmune: Type 2 diabetes GI: GERD, GI bleed, Ulcers, Colon polyps, Chronic diarrhea, Other : None HEENT: None Psych: None Musculoskeletal: Osteoarthritis, Chronic back pain Derm: None - Past Surgical History Past Surgical History: Yes General: Bowel surgery, Colonoscopy Ortho: Spine surgery Cardiovascular: Coronary stent, Valve replacement, Other - Present Medications Home Medications: Ambulatory Orders Medication Instructions Recorded Confirmed Albuterol [Ventolin Hfa] 2 puffs INH DAILY 06/29/13 10/13/16 Beclomethasone 80 Mcg [Qvar 80] 1 puffs INH DAILY 06/29/13 10/13/16 Fluticasone [Flonase] 2 sprays ANUP BID 06/29/13 10/13/16 Gabapentin [Neurontin] 600 mg PO HS 06/29/13 10/13/16 Lisinopril [Zestril] 5 mg PO DAILY 06/29/13 10/13/16 Metformin HCl [Fortamet] 1,000 mg PO BID 06/29/13 10/13/16 Omeprazole [PriLOSEC] 20 mg PO DAILY 06/29/13 10/13/16 glipiZIDE [Glucotrol] 10 - 15 mg PO BID 06/29/13 10/13/16 Cholecalciferol (Vitamin D3) 10,000 unit PO DAILY 09/02/13 10/13/16 [Vitamin D-3] traMADol [Ultram] 50 mg PO DAILY 12/19/13 10/13/16 Albuterol 2.5 mg INH Q4H PRN #30 neb 11/25/14 10/13/16 Furosemide [Lasix] 40 mg PO DAILY #20 tablet 11/25/14 10/13/16 hydrOXYzine pamoate [Hydroxyzine 100 mg PO QPM 11/25/14 10/13/16 Pamoate] Atorvastatin [Lipitor] 80 mg ORAL DAILY 02/05/16 10/13/16 Metoprolol Succinate 25 mg PO BID 02/05/16 10/13/16 Nitroglycerin 0.4 mg SL PRN PRN 02/05/16 10/13/16 Clopidogrel Bisulfate [Clopidogrel] 75 mg PO DAILY 06/29/16 10/13/16 Cyclobenzaprine HCl 10 mg PO DAILY 06/29/16 10/13/16 Dicyclomine [Bentyl] 20 mg PO QID 06/29/16 10/13/16 Insulin Glargine,Hum.rec.anlog 82 unit SQ DAILY 06/29/16 10/13/16 [Lantus] Insulin Lispro [Humalog] 4 - 8 unit SQ TIDWM 08/24/16 10/13/16 Isosorbide Dinitrate 5 mg PO TID 08/24/16 10/13/16 Acetaminophen 500 mg PO Q6H 10/13/16 10/13/16 Aspirin 81 mg PO DAILY 10/13/16 10/13/16 Clopidogrel [Plavix] 25 mg PO ONCE 10/13/16 10/13/16 oxyCODONE/ACET 5/325 [Percocet 5 1 - 2 each PO Q4-6H PRN #20 tablet 01/19/18 mg/325 mg] Amox/Clav 875/125 [Augmentin] 1 each PO Q12H #20 tablet 04/17/19 predniSONE [Deltasone] 20 mg PO [id number] #21 tab 04/17/19 predniSONE [Deltasone] 10 mg PO [id number] #42 tab 10/06/20 HYDROcod/ACETAM 5/325 [[place] 5/325] 1 - 2 tablet PO Q6H PRN #14 tablet 04/23/21 tiZANidine [Zanaflex] 4 mg PO Q8H #12 tablet 04/23/21 Oxycodone HCl/Acetaminophen 1 each PO Q6H PRN #15 tablet 06/13/21 [Percocet 5-325 mg Tablet] - Allergies Allergies/Adverse Reactions: Allergies Allergy/AdvReac Type Severity Reaction Status Date / Time No Known Drug Allergies Allergy Verified 06/13/21 11:23 - Social History Does the pt smoke?: No Smoking Status: Never smoker Does the pt drink ETOH?: No Does the pt have substance abuse?: No - Immunizations Immunizations are current?: Yes - POLST Patient has POLST: No PD ED PE NORMAL - Vitals Vital signs reviewed: Yes - General General: Alert and oriented X 3, Well developed/nourished, Other (guarding ROM of the left shoulder. Appears uncomfortable. ) - Derm Derm: Normal color, Warm and dry - Extremities Extremities: Other (left shoulder mostly tender anteriorly in pectoral and clavicle area. Some tender at AC but no stepoff. Suprascapular area mildly tender. Rotator cuff movements against resistance are strong, with pain just on abduction and extension. Pain elicited is anterior shoulder. not dislocated. ) - Neuro Neuro: No motor deficit, No sensory deficit Results - Vitals Vitals: Oxygen O2 Source Room air - Rads (name of study) left shoulder Radiology: Prelim report reviewed, EMP read contemporaneously (no fracture nor dislocation), See rad report PD MEDICAL DECISION MAKING - ED course Complexity details: reviewed results (no fracture nor dislocation), considered differential (rotational injury, so concern for rotator cuff. But his rotator me nuevers on exam are good, and pain anteriorly mostly with abduction and extension, so could be more pectoral muscle strain.), d/w patient Departure - Departure Disposition: 01 Home, Self Care Clinical Impression: Left shoulder strain Qualifiers: Encounter type: initial encounter Qualified Code(s): S46.912A - Strain of unspecified muscle, fascia and tendon at shoulder and upper arm level, left arm, initial encounter Condition: Stable Record reviewed to determine appropriate education?: Yes Instructions: ED Sprain Shoulder Follow-Up: Latonya Wright ARNP [Primary Care Provider] - Herve Martins MD [Provider Admit Priv/Credential] - Prescriptions: Oxycodone HCl/Acetaminophen [Percocet 5-325 mg Tablet] 1 each PO Q6H PRN #15 tablet PRN Reason: pain Comments: Use the sling for comfort of the shoulder and to reduce motion. Have the arm out of the sling periodically through the day with gentle range of motion to prevent stiffness. Ice or cool towels or topical ointments to the shoulder area to help with any inflammation and pain. Tylenol every 4-6 hours if needed for pain and take it fairly regularly for a few days. Substitute Percocet if needed for worse pain in the short-term. Follow-up with your primary care or orthopedics if not better over the next week or so. Progress use and activity as tolerated. I transmitted your prescription to [facility] in [place]. I am prescribing a short course of narcotic pain medication for you. These are potentially dangerous and addictive medications that should be used carefully. These medications may constipate you. Take an ravy-fww-ysvedat stool softener such as docusate twice daily with plenty of water while taking these medications. If you go 24 hours without a bowel movement, take cqdk-vtt-ydflkyq MiraLAX, per package instructions. Do not drink or drive while taking these medications. If you received narcotic or sedating medications while in the emergency department do not drive for 24 hours. Store this medication in a safe, secure place and out of reach of children. It is a violation of federal law to give or sell this medication to another person or to use in a manner other than prescribed. The ED will not refill narcotic prescriptions, including prescriptions lost or stolen. You can dispose of unwanted medications at the [facility]'s office or at several pharmacies such as [facility]. Discharge Date/Time: 06/13/21 13:24
--- NOTE | 2021-06-13 12:49 | XRAY Report ---
PROCEDURE: Shoulder 3 View LT INDICATIONS: s/p lifting injury TECHNIQUE: 3 views of the shoulder were acquired. COMPARISON: None. FINDINGS: Bones: No fractures or dislocations. No suspicious bony lesions. Visualized ribs appear intact. P eriarticular osteophyte formation at the acromioclavicular and glenohumeral joints. Soft tissues: No suspicious soft tissue calcifications. IMPRESSION: Osteoarthritis. No acute fracture. No osseous lesion. If symptoms and/or clinical suspic ion for pathology continue, further assessment with repeat plain films, or advanced imaging (e.g., CT , MRI, or bone scan) is recommended for further assessment. Reviewed by: Karoline Brown MD on 06/13/2021 11:47 AM [facility] Approved by: Karoline Brown MD on 06/13/2021 11:47 AM [facility] Station ID: [id number]
[2021-06-13] MEDS ORDERED: ACETAMINOPHEN 325 MG TABLET PO STA (12:56)
[2021-06-13 13:24] VITALS: BP 138/87
== END 2021-06-13 13:24 | disposition home or self-care (01) ==
LOC: ED 11:00
DX: S46.912A Strain of unspecified muscle, fascia and tendon at shoulder and upper arm level, left arm, initial encounter (principal); X50.0XXA Overexertion from strenuous movement or load, initial encounter; Y93.89 Activity, other specified; Y92.89 Other specified places as the place of occurrence of the external cause; Y99.0 Civilian activity done for income or pay
CPT/HCPCS: 73030; 99283; A9270

== ENCOUNTER 2021-09-02 07:11 | Outpatient (CLI) | payer MEDICAID ==
[2021-09-02 15:27] LABS: CREATININE 0.8 mg/dL (0.6-1.2)
== END 2021-09-02 07:12 | disposition home or self-care (01) ==
LOC: LAB.S 07:11
PROVIDERS: ATTEND Registered Nurse
DX: Z00.00 Encounter for general adult medical examination without abnormal findings (principal)
CPT/HCPCS: 36415; 82565

== ENCOUNTER 2021-09-17 08:16 | Outpatient (CLI) | payer MEDICAID | END 2021-09-17 08:17 | disposition short-term general hospital (02) | LOC: EMS 08:16 | DX: R07.89 Other chest pain (principal); M79.622 Pain in left upper arm | CPT/HCPCS: A0425; A0427; A0999 ==

== ENCOUNTER 2021-09-27 08:00 | Outpatient (CLI) | payer MEDICAID ==
--- NOTE | 2021-09-27 10:53 | XRAY Report ---
PROCEDURE: Chest 2 View X-Ray INDICATIONS: SHORTNESS OF BREATH TECHNIQUE: 2 views of the chest. COMPARISON: 06/02/2021 FINDINGS: Surgical changes and devices: None. Lungs and pleura: No pleural effusions or pneumothorax. There is mild pulmonary vascular prominence suggestive of pulmonary edema. Slightly increased indistinct left perihilar opacities may represent a region of consolidation/pneumonia. There is hyperinflation of the lungs with flattening of the hemid iaphragms compatible with COPD. Mediastinum: Mediastinal contours are unchanged. There is a large hiatal hernia. Heart size is enlar ged. Bones and chest wall: No suspicious bony abnormalities. Soft tissues appear unremarkable. IMPRESSION: 1. Cardiomegaly with pulmonary edema suggestive of congestive heart failure. 2. Indistinct clustered opacities in the left perihilar region may represent asymmetric edema or deve loping consolidation/pneumonia. 3. Large hiatal hernia. Reviewed by: Iam Erazo MD on 09/27/2021 10:52 AM PDT Approved by: Iam Erazo MD on 09/27/2021 10:52 AM PDT Station ID: [id number]
== END 2021-09-27 23:59 | disposition home or self-care (01) ==
LOC: DI.S 08:00
PROVIDERS: ATTEND Registered Nurse
DX: I51.7 Cardiomegaly (principal); J81.1 Chronic pulmonary edema; K44.9 Diaphragmatic hernia without obstruction or gangrene; R91.8 Other nonspecific abnormal finding of lung field

== ENCOUNTER 2021-11-19 07:39 | Outpatient (CLI) | payer MEDICAID ==
[2021-11-19 22:15] LABS: ESTIMATED AVERAGE GLUCOSE 148 mg/dL (70-100); HEMOGLOBIN A1c% 6.8 % (4.27-6.07)
== END 2021-11-19 07:40 | disposition home or self-care (01) ==
LOC: LAB.S 07:39
PROVIDERS: ATTEND Registered Nurse
DX: E11.39 Type 2 diabetes mellitus with other diabetic ophthalmic complication (principal)
CPT/HCPCS: 36415; 83036

== ENCOUNTER 2021-12-25 08:43 | Outpatient (CLI) | payer MEDICAID | END 2021-12-25 08:44 | disposition critical access hospital (66) | LOC: EMS 08:43 | DX: T38.3X1A Poisoning by insulin and oral hypoglycemic [antidiabetic] drugs, accidental (unintentional), initial encounter (principal) | CPT/HCPCS: A0425; A0427; A0999 ==

== ENCOUNTER 2022-01-06 19:37 | Emergency (ER) | payer MEDICAID ==
[2022-01-06 20:29] LABS: BASOPHILS % (AUTO) 0.7 %; EOSINOPHILS # (AUTO) 0.1 10^3/uL (0.0-0.7); EOSINOPHILS % (AUTO) 1.1 %; HCT - HEMATOCRIT 39.6 % (42.0-52.0); HGB - HEMOGLOBIN 13.3 g/dL (14.0-18.0); LYMPHOCYTES # (AUTO) 1.5 10^3/uL (1.5-3.5); MEAN CORPUSCULAR HEMOGLOBIN 29.9 pg (27.0-31.0); MEAN CORPUSCULAR HGB CONC 33.6 g/dL (32.0-36.0); MONOCYTES # (AUTO) 0.8 10^3/uL (0.0-1.0); MONOCYTES % (AUTO) 13.7 %; NEUTROPHILS # (AUTO) 3.6 10^3/uL (1.5-6.6); NEUTROPHILS % (AUTO) 59.3 %; PLT - PLATELET COUNT 153 10^3/uL (130-450); RED BLOOD COUNT 4.45 10^6/uL (4.70-6.10); RED CELL DISTRIBUTION WIDTH 14.7 % (12.0-15.0); WHITE BLOOD COUNT 6.1 x10^3/uL (4.8-10.8)
[2022-01-06 20:35] LABS: ALBUMIN 3.6 g/dL (3.2-5.5); ALBUMIN/GLOBULIN RATIO 1.2 (1.0-2.2); BILIRUBIN,TOTAL 0.7 mg/dL (0.2-1.0); CALCIUM 8.8 mg/dL (8.5-10.3); CREATININE 0.9 mg/dL (0.6-1.2); POTASSIUM 3.3 mmol/L (3.5-5.0); TOTAL PROTEIN 6.7 g/dL (6.7-8.2)
[2022-01-06 20:41] LABS: INR 1.3 (0.8-1.2); PT - PROTHROMBIN TIME 14.2 secs (9.9-12.6)
[2022-01-06] MEDS ORDERED: SODIUM CHLORIDE 0.9% 500 ML IV STA (20:42)
--- NOTE | 2022-01-06 20:47 | ED Physician Documentation ---
PD HPI GI BLEED - Stated complaint Stated Complaint: MALE GI/DISCHARGE BLOOD - Chief complaint Chief Complaint: Abd Pain - History obtained from History obtained from: Patient - History of Present Illness Associated symptoms: BRBPR - Additional information Additional information: Patient is a 61-year-old male with a history of cardiac stents and diverticulitis presenting for evaluation of bright red blood per rectum that is occurred 4 times since 6 PM.Patient reports getting home after being out all day and going to the bathroom where he noted "Rangel red blood" in the toilet bowl with a small amount of stool. He has also had left lower quadrant pain that he reports is a dull ache. He has a history of diverticulitis. He reports nausea but no vomiting. He denies hematuria or dysuria. He is on Plavix. He Believes his last colonoscopy was 2 to 3 years ago at [facility] or [place]. He reports having part of his colon removed in the past with 40 polyps also removed. He denies fever, cough, congestion, chest pain or difficulty breathing. He denies back pain. Nothing makes the abdominal pain better or worse. Review of Systems Constitutional: denies: Fever Nose: denies: Congestion Cardiac: denies: Chest pain / pressure Respiratory: denies: Dyspnea GI: reports: Abdominal Pain, Bloody / black stool. denies: Vomiting, Diarrhea : denies: Dysuria, Hematuria Musculoskeletal: denies: Back pain Neurologic: denies: Syncope, Headache PD PAST MEDICAL HISTORY - Past Medical History Cardiovascular: Congestive heart failure, High cholesterol, Coronary artery disease, Angina, Murmur, Other Respiratory: COPD, Shortness of breath, Sleep apnea, CPAP use Neuro: None Endocrine/Autoimmune: Type 2 diabetes GI: GERD, GI bleed, Ulcers, Colon polyps, Chronic diarrhea, Other : None HEENT: None Psych: None Musculoskeletal: Osteoarthritis, Chronic back pain Derm: None - Past Surgical History Past Surgical History: Yes General: Bowel surgery, Colonoscopy Ortho: Spine surgery Cardiovascular: Coronary stent, Valve replacement, Other - Present Medications Home Medications: Ambulatory Orders Medication Instructions Recorded Confirmed Fluticasone [Flonase] 2 sprays ANUP BID 06/29/13 01/06/22 Lisinopril [Zestril] 5 mg PO DAILY 06/29/13 01/06/22 Metformin HCl [Fortamet] 1,000 mg PO BID 06/29/13 01/06/22 Cholecalciferol (Vitamin D3) 10,000 unit PO DAILY 09/02/13 01/06/22 [Vitamin D-3] Albuterol 2.5 mg INH Q4H PRN #30 neb 11/25/14 01/06/22 Furosemide [Lasix] 40 mg PO DAILY #20 tablet 11/25/14 01/06/22 Atorvastatin [Lipitor] 80 mg ORAL DAILY 02/05/16 01/06/22 Nitroglycerin 0.4 mg SL PRN PRN 02/05/16 01/06/22 Clopidogrel Bisulfate [Clopidogrel] 75 mg PO DAILY 06/29/16 01/06/22 Dicyclomine [Bentyl] 20 mg PO QID 06/29/16 01/06/22 Insulin Glargine,Hum.rec.anlog 82 unit SQ DAILY 06/29/16 01/06/22 [Lantus] Insulin Lispro [Humalog] 4 - 8 unit SQ TIDWM 08/24/16 01/06/22 Isosorbide Dinitrate 5 mg PO TID 08/24/16 01/06/22 Acetaminophen 500 mg PO Q6H 10/13/16 01/06/22 Aspirin 81 mg PO DAILY 10/13/16 01/06/22 Clopidogrel [Plavix] 25 mg PO ONCE 10/13/16 01/06/22 Baclofen 01/06/22 Fluticasone/Salmeterol [Advair 01/06/22 250-50 Diskus] Gabapentin [Gralise] 900 mg PO 01/06/22 traZODone [Desyrel] 100 mg PO HS 01/06/22 01/06/22 - Allergies Allergies/Adverse Reactions: Allergies Allergy/AdvReac Type Severity Reaction Status Date / Time No Known Drug Allergies Allergy Verified 12/25/21 09:23 - Social History Does the pt smoke?: No Smoking Status: Never smoker Does the pt drink ETOH?: No Does the pt have substance abuse?: No - Immunizations Immunizations are current?: Yes - POLST Patient has POLST: No PD ED PE NORMAL - General General: Alert and oriented X 3, No acute distress, Well developed/nourished - HEENT HEENT: Atraumatic, Moist mucous membranes - Neck Neck: Supple, no meningeal sign - Cardiac Cardiac: RRR, No murmur, Strong equal pulses - Respiratory Respiratory: No respiratory distress, Clear bilaterally - Abdomen Abdomen: Normal bowel sounds, Soft, Non distended, Other (Left lower quadrant tenderness) - Rectal Rectal: Other (Chaperoned by Peri, normal rectal tone, dark blood on glove, no palpable masses or visualized hemorrhoids, No fissures, patient tolerated well) - Derm Derm: Warm and dry - Extremities Extremities: No edema - Neuro Neuro: Normal speech - Psych Psych: Normal mood Results - Vitals Vitals: Vital Signs - 24 hr 01/06/22 01/07/22 01/07/22 23:00 01:29 03:00 Temperature Heart Rate 64 62 67 Respiratory 11 L 17 15 Rate Blood Pressure 128/76 106/57 L 115/64 O2 Saturation 96 90 L 92 01/07/22 01/07/22 01/07/22 07:55 09:00 11:00 Temperature Heart Rate 70 64 68 Respiratory 13 16 15 Rate Blood Pressure 118/40 L 119/56 L 111/63 O2 Saturation 98 97 98 01/07/22 01/07/22 01/07/22 13:00 14:58 15:07 Temperature 36.7 C Heart Rate 62 69 69 Respiratory 11 L 16 16 Rate Blood Pressure 119/83 H 119/78 119/78 O2 Saturation 97 98 97 Oxygen O2 Source Room air - Labs Labs: Microbiology 01/06/22 21:10 Occult Blood - Final Stool Laboratory Tests 01/06/22 01/06/22 01/06/22 20:19 20:19 20:27 WBC 6.1 RBC 4.45 L Hgb 13.3 L Hct 39.6 L MCV 89.0 MCH 29.9 MCHC 33.6 RDW 14.7 Plt Count 153 MPV 10.0 Neut # (Auto) 3.6 Lymph # (Auto) 1.5 [place] # (Auto) 0.8 Eos # (Auto) 0.1 Baso # (Auto) 0.0 Absolute Nucleated RBC 0.00 Nucleated RBC % 0.0 PT 14.2 H INR 1.3 H Sodium 133 L Potassium 3.3 L Chloride 102 Carbon Dioxide 24 Anion Gap 7.0 BUN 11 Creatinine 0.9 Estimated GFR (MDRD) 86 L Glucose 104 H POC Whole Bld Glucose Calcium 8.8 Total Bilirubin 0.7 AST 21 ALT 26 Alkaline Phosphatase 60 Total Protein 6.7 Albumin 3.6 Globulin 3.1 Albumin/Globulin Ratio 1.2 SARS-CoV-2 (PCR) Blood Type Blood Type Recheck Antibody Screen 01/06/22 01/07/22 01/07/22 22:05 01:54 01:54 WBC RBC Hgb 10.9 L Hct 33.2 L MCV MCH MCHC RDW Plt Count MPV Neut # (Auto) Lymph # (Auto) [place] # (Auto) Eos # (Auto) Baso # (Auto) Absolute Nucleated RBC Nucleated RBC % PT INR Sodium Potassium Chloride Carbon Dioxide Anion Gap BUN Creatinine Estimated GFR (MDRD) Glucose POC Whole Bld Glucose Calcium Total Bilirubin AST ALT Alkaline Phosphatase Total Protein Albumin Globulin Albumin/Globulin Ratio SARS-CoV-2 (PCR) DETECTED A Blood Type Blood Type Recheck O POSITIVE Antibody Screen 01/07/22 01/07/22 01/07/22 08:02 08:02 13:56 WBC RBC Hgb 11.8 L Hct 35.2 L MCV MCH MCHC RDW Plt Count MPV Neut # (Auto) Lymph # (Auto) [place] # (Auto) Eos # (Auto) Baso # (Auto) Absolute Nucleated RBC Nucleated RBC % PT INR Sodium Potassium Chloride Carbon Dioxide Anion Gap BUN Creatinine Estimated GFR (MDRD) Glucose POC Whole Bld Glucose 90 Calcium Total Bilirubin AST ALT Alkaline Phosphatase Total Protein Albumin Globulin Albumin/Globulin Ratio SARS-CoV-2 (PCR) Blood Type O POSITIVE Blood Type Recheck Antibody Screen NEGATIVE 01/07/22 14:07 WBC RBC Hgb 10.9 L Hct 32.8 L MCV MCH MCHC RDW Plt Count MPV Neut # (Auto) Lymph # (Auto) [place] # (Auto) Eos # (Auto) Baso # (Auto) Absolute Nucleated RBC Nucleated RBC % PT INR Sodium Potassium Chloride Carbon Dioxide Anion Gap BUN Creatinine Estimated GFR (MDRD) Glucose POC Whole Bld Glucose Calcium Total Bilirubin AST ALT Alkaline Phosphatase Total Protein Albumin Globulin Albumin/Globulin Ratio SARS-CoV-2 (PCR) Blood Type Blood Type Recheck Antibody Screen PD MEDICAL DECISION MAKING - ED course Complexity details: reviewed results, re-evaluated patient, d/w patient ED course: 2114 - Patient had another episode of bright red blood per rectum after my initial exam and prior to CT scan.This is episode 5 or 6 this evening. 2154 - D/W Dr. Steward. Given ongoing bleeding recommends admission to ob servation to medicine service. Made aware that there are no inpatient beds available and we are boarding in the emergency department. He recommends clear liquid diet, holding Plavix and every 6 H&H. He will see the patient in the morning. If bleeding has improved then patient may be able to go home. If bleeding continues then he will Order bowel prep for patient and plan for colonoscopy on Monday. Patient found to be COVID-positive. He appears to be asymptomatic.He is placed into isolation. 0700 - Patient continued to have bloody bowel movements through the night. Hemodynamically stable. Repeat H&H reviewed. There are no beds available in the hospital thus not able to present To the hospitalist. Patient care turned over to Dr. La In the emergency department. Patient is awaiting general surgery evaluation this morning and repeat H&H. Departure - Departure Disposition: Home, Self Care Clinical Impression: Hematochezia, COVID-19 Anemia Qualifiers: Anemia type: unspecified type Qualified Code(s): D64.9 - Anemia, unspecified Condition: Stable Instructions: ED Hematochezia Stable, ED Diverticulosis Comments: You have small pouches coming out from your large intestine, which are the most likely cause of the bleeding. These are common source of bleeding for people and generally, though they may bleed temporarily, do not cause any ongoing bleeding. Your blood levels have been fairly stable over the last few readings and are not continuing to significantly drop. Your heart rate and blood pressure have also remained stable. Both the speech language specialist and the surgeon on-call, Dr. Steward, have reviewed your case and feel that you are stable for discharge, as there is no emergent indication for anything surgically to be done, or for a transfusion. You may follow-up through the clinics in [place] with a inspector general. If you have seen them before, you may call the same office you saw previously. Otherwise, you may follow-up with your primary doctor for referral to gastroenterology for a scope. If you begin bleeding heavily again and especially if you develop lightheadedness or shortn ess of breath, please return to the emergency department. Discharge Date/Time: 01/07/22 15:35
--- NOTE | 2022-01-06 21:46 | CT Report ---
PROCEDURE: Abdomen/Pelvis WO INDICATIONS: rectal bleeding/diverticulitis/LLQ pain TECHNIQUE: Noncontrast 5 mm thick sections acquired from the diaphragms to the symphysis. 5 mm coronal and sagi ttal reformats were then performed. For radiation dose reduction, the following was used: automated exposure control, adjustment of mA and/or kV according to patient size. COMPARISON: CT abdomen pelvis 04/30/2016. FINDINGS: Image quality: Excellent. Lung bases:There is linear atelectasis and scarring in the lung bases. Heart: Heart is normal in size. There is a partially visualized large hiatal hernia. ABDOMEN: Liver:Noncontrast evaluation of the liver demonstrates no discrete hepatic mass. Gallbladder:Surgically absent. Biliary ducts: No biliary ductal dilatation. Pancreas: Unremarkable. Spleen: Normal in size. Adrenal Glands: No adrenal nodules. Kidneys and Ureters: No hydronephrosis. There is a small exophytic left renal stone. Mild nonspecifi c perinephric stranding present bilaterally. Ureters are nondistended. Stomach and Bowel: Stomach, small bowel loops, and colon are normal in caliber and wall thickness. T he appendix is normal in appearance. There is colonic diverticulosis without acute diverticulitis. Ochoa rgical sutures are demonstrated in the sigmoid colon. Peritoneum: No abnormal intraperitoneal fluid. No free air. Ventral Wall: There is a small fat-containing right paracentral ventral abdominal hernia. Abdominal Nodes: No retroperitoneal or mesenteric adenopathy by size criteria. Vessels: Aorta and inferior vena cava are normal in size. PELVIS: Pelvic Organs: Unremarkable. Bladder: Unremarkable. Pelvic Nodes: No enlarged lymph nodes. Miscellaneous: No inguinal hernias are seen. Bones: Visualized osseous structures demonstrate no suspicious focal lesions. IMPRESSION: 1. No definite acute intra-abdominal abnormality. Specifically, there is colonic diverticulosis witho ut acute diverticulitis. Evaluation for colonic mass lesions is limited on the current noncontrast st udy. If clinical concern persists, consider follow-up evaluation with colonoscopy. 2. Large hiatal hernia. Reviewed by: Iam Erazo MD on 01/06/2022 9:45 PM PDT Approved by: Iam Erazo MD on 01/06/2022 9:45 PM PDT Station ID: [id number]
[2022-01-06] MEDS ORDERED: MORPHINE 2 MG/ML CARPUJECT IVP STA (22:20)
[2022-01-06] MEDS ORDERED: ONDANSETRON 4 MG/2 ML VIAL IVP STA (22:20)
[2022-01-07 02:08] LABS: HCT - HEMATOCRIT 33.2 % (42.0-52.0); HGB - HEMOGLOBIN 10.9 g/dL (14.0-18.0)
[2022-01-07] MEDS ORDERED: fentaNYL 100 MCG/2 ML VIAL IVP STA ×2 (03:14→14:21)
[2022-01-07 08:11] LABS: HCT - HEMATOCRIT 35.2 % (42.0-52.0); HGB - HEMOGLOBIN 11.8 g/dL (14.0-18.0)
[2022-01-07] MEDS ORDERED: HYDROmorphone 1 MG/ML CARPUJECT IVP STA (10:14)
--- NOTE | 2022-01-07 12:17 | CONSULTATION NOTE ---
Referring Provider Consult Date: 01/07/22 Chief Complaint - Chief Complaint Chief Complaint: blood per rectum History of Present Illness - History Obtained From Records Reviewed: yes History obtained from: ED MD Exam Limitations: covid isolation - History of Present Illness HPI Comment/Other: came to ED last pm with bloody bms. observation in ED over night. last h and h stable hx remarkable for distant sigmoid colectomy, colonoscopy in 2013. No colon polyps. PMH also remarkable for coranary artery disease and admission to [facility] 4 months ago with chest pain and congestive heart failure. Work up abnormal stress test and aortic stenosis in addition to his diastolic heart failure. History - Past Medical History Cardiovascular: reports: Congestive heart failure, High cholesterol, Coronary artery disease, Angina, Murmur, Other Respiratory: reports: COPD, Shortness of breath, Sleep apnea, CPAP use Neuro: reports: None Endocrine/Autoimmune: reports: Type 2 diabetes GI: reports: GERD, GI bleed, Ulcers, Colon polyps, Chronic diarrhea, Other : reports: None HEENT: reports: None Psych: reports: None Musculoskeletal: reports: Osteoarthritis, Chronic back pain Derm: reports: None MRSA Hx?: No - Past Surgical History General: reports: Bowel surgery, Colonoscopy Ortho: reports: Spine surgery Cardiovascular: reports: Coronary stent, Valve replacement, Other - POLST Patient has POLST: No Meds/Allgy - Home Medications Home Medications: Ambulatory Orders Medication Instructions Recorded Confirmed Fluticasone [Flonase] 2 sprays ANUP BID 06/29/13 01/06/22 Lisinopril [Zestril] 5 mg PO DAILY 06/29/13 01/06/22 Metformin HCl [Fortamet] 1,000 mg PO BID 06/29/13 01/06/22 Cholecalciferol (Vitamin D3) 10,000 unit PO DAILY 09/02/13 01/06/22 [Vitamin D-3] Albuterol 2.5 mg INH Q4H PRN #30 neb 11/25/14 01/06/22 Furosemide [Lasix] 40 mg PO DAILY #20 tablet 11/25/14 01/06/22 Atorvastatin [Lipitor] 80 mg ORAL DAILY 02/05/16 01/06/22 Nitroglycerin 0.4 mg SL PRN PRN 02/05/16 01/06/22 Clopidogrel Bisulfate [Clopidogrel] 75 mg PO DAILY 06/29/16 01/06/22 Dicyclomine [Bentyl] 20 mg PO QID 06/29/16 01/06/22 Insulin Glargine,Hum.rec.anlog 82 unit SQ DAILY 06/29/16 01/06/22 [Lantus] Insulin Lispro [Humalog] 4 - 8 unit SQ TIDWM 08/24/16 01/06/22 Isosorbide Dinitrate 5 mg PO TID 08/24/16 01/06/22 Acetaminophen 500 mg PO Q6H 10/13/16 01/06/22 Aspirin 81 mg PO DAILY 10/13/16 01/06/22 Clopidogrel [Plavix] 25 mg PO ONCE 10/13/16 01/06/22 Baclofen 01/06/22 Fluticasone/Salmeterol [Advair 01/06/22 250-50 Diskus] Gabapentin [Gralise] 900 mg PO 01/06/22 traZODone [Desyrel] 100 mg PO HS 01/06/22 01/06/22 - Allergies Allergies/Adverse Reactions: Allergies Allergy/AdvReac Type Severity Reaction Status Date / Time No Known Drug Allergies Allergy Verified 12/25/21 09:23 Exam - Vital Signs Vital Signs: Vital Signs x48h Pulse Resp BP Pulse Ox 01/07/22 11:00 68 15 111/63 98 01/07/22 09:00 64 16 119/56 L 97 01/07/22 07:55 70 13 118/40 L 98 Conclusion/Plan - Problem List (1) Hematochezia Conclusion/Plan: agree with care and plan. clear liquid diet until h and h stable x 2. if h and h remains stable diet may be advanced and he may be d/c. He has significant heart disease and is not a candidate for procedures at [facility]. If bleeding continues recommend transfer to a facility that can offer a higher level of care. ct scan shows diverticulosis. most likely had diverticular bleed which stops spontaneously most of the time if h and h remains stable recommend follow up with his primary care provider he is due for colonoscopy in 2023. he should follow up with [facility] gi at that time and as needed - Lab Results Fish Bones: 01/07/22 08:02 01/06/22 20:19
[2022-01-07 14:12] LABS: HCT - HEMATOCRIT 32.8 % (42.0-52.0); HGB - HEMOGLOBIN 10.9 g/dL (14.0-18.0)
[2022-01-07 15:08] VITALS: BP 119/78
== END 2022-01-07 15:35 | disposition home or self-care (01) ==
LOC: ED 19:37
DX: U07.1 COVID-19 (principal); K92.1 Melena; D64.9 Anemia, unspecified; K57.90 Diverticulosis of intestine, part unspecified, without perforation or abscess without bleeding; E11.9 Type 2 diabetes mellitus without complications; Z79.4 Long term (current) use of insulin; Z95.5 Presence of coronary angioplasty implant and graft
CPT/HCPCS: 36415; 74176; 80053; 82272; 85014; 85018; 85025; 85610; 86850; 86900; 86901; 87635; 96374; 96375; 96376; 99284; 99285; J1170

== ENCOUNTER 2022-04-13 10:36 | Outpatient (CLI) | payer MEDICAID ==
--- NOTE | 2022-04-14 08:07 | XRAY Report ---
PROCEDURE: Shoulder 3 View RT INDICATIONS: SHOULDER JOINT PAIN, RIGHT TECHNIQUE: 3 views of the shoulder were acquired. COMPARISON: 03/17/2020 FINDINGS: Bones: No fractures or dislocations. No suspicious bony lesions. Visualized ribs appear intact. S evere acromioclavicular and mild glenohumeral narrowing. Soft tissues: No suspicious soft tissue calcifications. IMPRESSION: Degenerative changes most prominent at the acromioclavicular joint space. Reviewed by: Alyssa Rowland MD on 04/14/2022 8:06 AM PDT Approved by: Alyssa Rowland MD on 04/14/2022 8:06 AM PDT Station ID: [id number]
== END 2022-04-13 10:37 | disposition home or self-care (01) ==
LOC: DI.S 10:36
PROVIDERS: ATTEND Nurse Practitioner
DX: M19.011 Primary osteoarthritis, right shoulder (principal)

== ENCOUNTER 2022-05-02 14:49 | Outpatient (CLI) | payer MEDICAID ==
[2022-05-02 15:27] VITALS: BP 116/60
--- NOTE | 2022-05-02 15:27 | SLEEP CARE CONSULTATION ---
Information from patient questionnaire entered by Dmitriy Hamm. I have reviewed and concur with the information entered by Dmitriy Hamm. This document represents the service I personally performed and the decisions made by me, Josesito Cook MD, [facility]. History of Present Illness Service Date and Time: 05/02/2022 1449 Previous diagnosis: Very Severe, Obstructive Sleep Apnea-Hypopnea Syndrome AHI: 70.9 Reason for follow up: annual (LAST SEEN 03/2021) Equipment type: CPAP (DREAM STATION) Equipment obtained from: [employer] Mask style: Full face Prior sleep studies: Yes Year and Where: 2013 [facility] HPI additional information: Mr. Zhang was diagnosed to have very severe obstructive sleep apnea-hypopnea syndrome and returns today for annual follow up of CPAP therapy. He wears both a nasal mask and a full face mask. He continues to use the [employer] DreamStation 2 autoCPAP every night and all night. The compliance report shows usage in 80 nights out of the past 85 nights, averaging 9.7 hours a night. He complains of dry mouth and noises from mask air leak. He thinks that the pressure of 10 - 15 cmH2O (was 12 cmH2O) remains comfortable. On the CPAP therapy he notices improvement in his sleep quality, and that he wakes up feeling fresher in the morning and more awake/alert during the day. [place] Sleepiness Scale score is 4. The average residual AHI is 2.5 (was 3.1); and average time in large leak per day is 3 seconds (was 44 minutes) a night. The 90th percentile pressure is 12 cmH2O. Sleep Study - Results Prior sleep studies: Yes Year and Where: 2013 [facility] CPAP Compliance Data - Data Reviewed with Patient Average duration of nightly device use: 9hrs, 21min, 43sec Compliance rate %: 94.1 (02/04/22-04/29/22) Current pressure setting (cmH2O): 10-15 Average residual AHI: 2.5 Subjective Initial [place] Sleepiness Scale score: 18 (in 2012) Current [place] Sleepiness Scale score: 4 (05/02/2022) Allergies and Home Medications Drug allergies reviewed: Yes Home medication list reviewed: Yes Allergy and home medication list: Allergies No Known Drug Allergies Allergy (Verified 06/25/22 09:23) Review of Systems Review of systems same as previous: Yes Physical Exam Vital signs obtained and entered by: DMITRIY Cabrera MA Blood Pressure: 116/60 (left arm) Cuff size: regular Heart Rate: 76 O2 Saturation: 96 Height: 6 ft 1 in Weight: 277 lb 9.6 oz Body Mass Index: 36.6 BMI Classification: Obese Impression and Plan IMPRESSION: 1. Obstructive Sleep Apnea-Hypopnea Syndrome, very severe (AHI was 70.9), with the patient continuing to do well on nasal CPAP therapy. He continues to have excellent compliance and significant clinical benefits. The current pressure appears effective but comfortable. Overall, he is very satisfied with treatment and plans to continue with it long-term. No adjustment is necessary today. PLAN: 1. Leave autoCPAP at 10 - 15 cm H2O. 2. Try to lose weight 3. Return for follow up in a year or earlier if there is any problem. Continue with device pressure at (cmH2O): 10 - 15 Counseling Topics: Weight control Follow up with Sleep Care in: 1 year Visit Type: In Office Time Spent with Patient (minutes): 15 Provider Statement: I spent 100% of the Face to Face Visit with the patient with greater than 50% spent counseling the patient and coordination of care.
== END 2022-05-02 14:50 | disposition home or self-care (01) ==
LOC: SC 14:49
PROVIDERS: ATTEND Internal Medicine Pulmonary Disease
DX: G47.33 Obstructive sleep apnea (adult) (pediatric) (principal); E66.9 Obesity, unspecified; Z68.36 Body mass index [BMI] 36.0-36.9, adult
CPT/HCPCS: 99212

== ENCOUNTER 2022-05-24 07:29 | Outpatient (CLI) | payer MEDICAID ==
[2022-05-24 14:45] LABS: BASOPHILS # (AUTO) 0.1 10^3/uL (0.0-0.1); BASOPHILS % (AUTO) 0.9 %; EOSINOPHILS # (AUTO) 0.4 10^3/uL (0.0-0.7); EOSINOPHILS % (AUTO) 4.6 %; HCT - HEMATOCRIT 44.4 % (42.0-52.0); HGB - HEMOGLOBIN 14.1 g/dL (14.0-18.0); LYMPHOCYTES # (AUTO) 2.2 10^3/uL (1.5-3.5); LYMPHOCYTES % (AUTO) 27.4 %; MEAN CORPUSCULAR HEMOGLOBIN 28.3 pg (27.0-31.0); MEAN CORPUSCULAR HGB CONC 31.8 g/dL (32.0-36.0); MEAN PLATELET VOLUME 11.3 fL (7.4-11.4); MONOCYTES # (AUTO) 0.8 10^3/uL (0.0-1.0); MONOCYTES % (AUTO) 10.5 %; NEUTROPHILS # (AUTO) 4.4 10^3/uL (1.5-6.6); NEUTROPHILS % (AUTO) 56.2 %; PLT - PLATELET COUNT 174 10^3/uL (130-450); RED BLOOD COUNT 4.99 10^6/uL (4.70-6.10); RED CELL DISTRIBUTION WIDTH 15.8 % (12.0-15.0); WHITE BLOOD COUNT 7.9 x10^3/uL (4.8-10.8)
[2022-05-24 15:13] LABS: ALBUMIN 3.7 g/dL (3.2-5.5); ALBUMIN/GLOBULIN RATIO 1.2 (1.0-2.2); ALKALINE PHOSPHATASE 84 IU/L (42-121); ALT ALANINE AMINOTRANSFERASE 32 IU/L (10-60); AST ASPARTATE AMINOTRANSFERASE 22 IU/L (10-42); BILIRUBIN,TOTAL 0.4 mg/dL (0.2-1.0); BUN - BLOOD UREA NITROGEN 16 mg/dL (6-20); CALCIUM 8.5 mg/dL (8.5-10.3); CARBON DIOXIDE - CO2 28 mmol/L (21-32); CHLORIDE 103 mmol/L (101-111); CHOL/HDL RATIO 4.5 (<5.0); CHOLESTEROL 144 mg/dL; CREATININE 0.9 mg/dL (0.6-1.2); GFR - MDRD 86 (>89); GLUCOSE 180 mg/dL (70-100); HDL CHOLESTEROL 32 mg/dL; LDL CHOLESTEROL,CALCULATED 63 mg/dL; SODIUM 139 mmol/L (135-145); TOTAL PROTEIN 6.8 g/dL (6.7-8.2); TRIGLYCERIDES 245 mg/dL; VLDL CHOLESTEROL 49 mg/dL
[2022-05-24 21:05] LABS: ESTIMATED AVERAGE GLUCOSE 194 mg/dL (70-100); HEMOGLOBIN A1c% 8.4 % (4.27-6.07)
== END 2022-05-24 07:30 | disposition home or self-care (01) ==
LOC: LAB.S 07:29
PROVIDERS: ATTEND Nurse Practitioner
DX: E11.39 Type 2 diabetes mellitus with other diabetic ophthalmic complication (principal); E78.5 Hyperlipidemia, unspecified; R53.83 Other fatigue
CPT/HCPCS: 36415; 80053; 80061; 82043; 82570; 83036; 83721; 84153; 85025

== ENCOUNTER 2022-09-02 07:30 | Outpatient (CLI) | payer MEDICAID ==
[2022-09-02 15:08] LABS: ALBUMIN 3.6 g/dL (3.2-5.5); ALBUMIN/GLOBULIN RATIO 1.1 (1.0-2.2); BILIRUBIN,TOTAL 0.5 mg/dL (0.2-1.0); CALCIUM 8.7 mg/dL (8.5-10.3); CREATININE 0.9 mg/dL (0.6-1.2); POTASSIUM 4.1 mmol/L (3.5-5.0); TOTAL PROTEIN 6.9 g/dL (6.7-8.2)
[2022-09-02 15:30] LABS: ESTIMATED AVERAGE GLUCOSE 148 mg/dL (70-100); HEMOGLOBIN A1c% 6.8 % (4.27-6.07)
== END 2022-09-02 07:31 | disposition home or self-care (01) ==
LOC: LAB.S 07:30
PROVIDERS: ATTEND Nurse Practitioner
DX: E11.9 Type 2 diabetes mellitus without complications (principal)
CPT/HCPCS: 36415; 80053; 83036

== ENCOUNTER 2022-10-29 10:46 | Outpatient (CLI) | payer MEDICAID ==
[2022-10-29 11:21] LABS: ALT ALANINE AMINOTRANSFERASE 28 IU/L (10-60); AST ASPARTATE AMINOTRANSFERASE 17 IU/L (10-42); CHOL/HDL RATIO 2.9 (<5.0); CHOLESTEROL 114 mg/dL; CK- CREATINE KINASE 61 IU/L (22-269); HDL CHOLESTEROL 40 mg/dL; LDL CHOLESTEROL,CALCULATED 46 mg/dL; LDL CHOLESTEROL,DIRECT 67 mg/dL; LDL/HDL RATIO 1.2 (<3.6); TRIGLYCERIDES 141 mg/dL; VLDL CHOLESTEROL 28 mg/dL
== END 2022-10-29 10:47 | disposition home or self-care (01) ==
LOC: LAB 10:46
PROVIDERS: ATTEND Physician Assistant
DX: E78.5 Hyperlipidemia, unspecified (principal); I25.119 Atherosclerotic heart disease of native coronary artery with unspecified angina pectoris
CPT/HCPCS: 36415; 80061; 82550; 83721; 84450; 84460

== ENCOUNTER 2023-02-17 07:10 | Outpatient (CLI) | payer MEDICAID ==
[2023-02-17 14:37] LABS: MICROALBUM/CREATININE RATIO,UR 7.4 ug/mg (<30.0); MICROALBUMIN,URINE 0.7 mg/dL
[2023-02-17 15:20] LABS: ESTIMATED AVERAGE GLUCOSE 151 mg/dL (70-100); HEMOGLOBIN A1c% 6.9 % (4.27-6.07)
== END 2023-02-17 07:11 | disposition home or self-care (01) ==
LOC: LAB.S 07:10
PROVIDERS: ATTEND Nurse Practitioner
DX: E11.39 Type 2 diabetes mellitus with other diabetic ophthalmic complication (principal); E78.5 Hyperlipidemia, unspecified; R53.83 Other fatigue
CPT/HCPCS: 36415; 82043; 82570; 83036

== ENCOUNTER 2023-03-20 08:06 | Outpatient (CLI) | payer MEDICAID ==
[2023-03-20 14:47] LABS: HCT - HEMATOCRIT 44.7 % (42.0-52.0); HGB - HEMOGLOBIN 14.3 g/dL (14.0-18.0); MEAN CORPUSCULAR HEMOGLOBIN 30.1 pg (27.0-31.0); MEAN CORPUSCULAR VOLUME 94.1 fL (80.0-94.0); MEAN PLATELET VOLUME 10.6 fL (7.4-11.4); RED BLOOD COUNT 4.75 10^6/uL (4.70-6.10); RED CELL DISTRIBUTION WIDTH 14.5 % (12.0-15.0); WHITE BLOOD COUNT 7.9 x10^3/uL (4.8-10.8)
[2023-03-20 15:55] LABS: CALCIUM 9.1 mg/dL (8.5-10.3); CREATININE 0.7 mg/dL (0.6-1.3); POTASSIUM 3.9 mmol/L (3.5-4.5)
[2023-03-20 16:15] LABS: FERRITIN 33.9 ng/mL (23.9-336.2)
== END 2023-03-20 08:07 | disposition home or self-care (01) ==
LOC: LAB.S 08:06
PROVIDERS: ATTEND Physician Assistant
DX: E11.9 Type 2 diabetes mellitus without complications (principal); G47.61 Periodic limb movement disorder
CPT/HCPCS: 36415; 80048; 82728; 85027

== ENCOUNTER 2023-04-17 14:14 | Outpatient (CLI) | payer MEDICAID ==
--- NOTE | 2023-04-17 14:53 | SLEEP CARE CONSULTATION ---
Information from patient questionnaire entered by Dmirtiy Hamm. I have reviewed and concur with the information entered by Dmitriy Hamm. This document represents the service I personally performed and the decisions made by me, Josesito Cook MD, [facility]. History of Present Illness Service Date and Time: 04/17/2023 1414 Previous diagnosis: Very Severe, Obstructive Sleep Apnea-Hypopnea Syndrome AHI: 70.9 Reason for follow up: annual (LAST SEEN 04/2022) Equipment type: CPAP (DREAM STATION) Equipment obtained from: [employer] Mask style: Full face Prior sleep studies: Yes Year and Where: 2013 [facility] HPI additional information: Mr. Zhang was diagnosed to have very severe obstructive sleep apnea-hypopnea syndrome and returns today for annual follow up of CPAP therapy. He wears both a nasal mask and a full face mask. He continues to use the [employer] DreamStation 2 autoCPAP every night and all night. The compliance report shows usage in 177 nights out of the past 180 nights, averaging 9.9 hours a night. He complains of dry mouth and noises from mask air leak. He thinks that the pressure of 10 - 15 cmH2O (was 12 cmH2O) remains comfortable. On the CPAP thera py he notices improvement in his sleep quality, and that he wakes up feeling fresher in the morning and more awake/alert during the day. [place] Sleepiness Scale score is 3. The average residual AHI is 5.3 (was 3.1); and average time in large leak per day is 36 seconds (was 44 minutes) a night. The 90th percentile pressure is 13.0 cmH2O. Sleep Study - Results Prior sleep studies: Yes Year and Where: 2013 [facility] CPAP Compliance Data - Data Reviewed with Patient Average duration of nightly device use: 9HRS 54MINS 48SEC Compliance rate %: 97.8 (10/04/22-04/01/23) Current pressure setting (cmH2O): 10-15 Average residual AHI: 5.3 Subjective Initial [place] Sleepiness Scale score: 18 (in 2012) Current [place] Sleepiness Scale score: 3 (04/17/23) Allergies and Home Medications Drug allergies reviewed: Yes Home medication list reviewed: Yes Allergy and home medication list: Allergies No Known Drug Allergies Allergy (Verified 04/14/23 15:02) Review of Systems Review of systems same as previous: Yes Physical Exam Vital signs obtained and entered by: DMITRIY Cabrera MA Blood Pressure: 132/84 (LEFT ARM) Cuff size: regular Heart Rate: 81 O2 Saturation: 97 Height: 6 ft 1 in Weight: 272 lb 9.6 oz Body Mass Index: 35.9 BMI Classification: Obese Impression and Plan IMPRESSION: 1. Obstructive Sleep Apnea-Hypopnea Syndrome, very severe (AHI was 70.9), with the patient continuing to do well on nasal CPAP therapy. He continues to have excellent compliance and significant clinical benefits. The current pressure appears effective but comfortable. Overall, he is very satisfied with treatment and plans to continue with it long-term. No adjustment is necessary today. PLAN: 1. Leave autoCPAP at 10 - 15 cm H2O. 2. Try to lose weight 3. Return for follow up in six months when he becomes eligible for a new machine. Follow up with Sleep Care in: 6 months Visit Type: In Office Time Spent with Patient (minutes): 15 Provider Statement: I spent 100% of the Face to Face Visit with the patient with greater than 50% spent counseling the patient and coordination of care.
[2023-04-17 14:57] VITALS: BP 132/84; O2SAT 97
== END 2023-04-17 14:15 | disposition home or self-care (01) ==
LOC: SC 14:14
PROVIDERS: ATTEND Internal Medicine Pulmonary Disease
DX: G47.33 Obstructive sleep apnea (adult) (pediatric) (principal); E66.9 Obesity, unspecified; Z68.35 Body mass index [BMI] 35.0-35.9, adult
CPT/HCPCS: 99212

== ENCOUNTER 2023-04-18 07:37 | Outpatient (CLI) | payer MEDICAID ==
--- NOTE | 2023-04-18 13:28 | MRI Report ---
PROCEDURE: MRI lumbar spine without contrast INDICATIONS: BACK PAIN TECHNIQUE: Multiplanar multisequential MRI images of the lumbar spine were obtained without intraven ous contrast. COMPARISON: 08/16/2018 FINDINGS: Alignment and Curvature: There is normal bony alignment. Bone Marrow: Marrow is of normal overall signal. No acute vertebral body compression fractures. No sacral fractures. Spinal Cord: Conus medullaris terminates at the L1 level. Visualized cord demonstrates normal signa l and size. Paraspinal Soft Tissues: Unremarkable perivertebral soft tissues. T12-L1: Normal in appearance. L1-L2: Normal in appearance. L2-L3: Disc space narrowing and cervical disc bulge with hypertrophic facet joints results in mild central stenosis. Mild left and no right foraminal stenosis L3-L4: Disc height is preserved. Circumferential disc bulge with hypertrophic facet joints and dors al epidural fat results in moderate central stenosis. No foraminal stenosis L4-L5: Disc space narrowing with circumferential disc bulge and hypertrophic facet joints results i n mild central stenosis. Probable prior central laminotomy noted. No foraminal stenosis. L5-S1: Disc space narrowing with broad-based disc bulge effaces both lateral recesses without centr al stenosis. No foraminal stenosis IMPRESSION: Multilevel degenerative disc disease and arthropathy results in varying degrees of central and forami nal stenosis including moderate central stenosis L3-4 Reviewed by: Jim Flowers MD on 04/18/2023 12:27 PM [email or web address] Approved by: Jim Flowers MD on 04/18/2023 12:27 PM AKDT Station ID: [id number]
== END 2023-04-18 07:38 | disposition home or self-care (01) ==
LOC: DI 07:37
PROVIDERS: ATTEND Nurse Practitioner
DX: M51.36 Other intervertebral disc degeneration, lumbar region (principal); M48.061 Spinal stenosis, lumbar region without neurogenic claudication; M47.816 Spondylosis without myelopathy or radiculopathy, lumbar region; M51.37 Other intervertebral disc degeneration, lumbosacral region